=== PATIENT | female | born 1935 | race Caucasian/White ===

== ENCOUNTER 2023-04-04 19:19 | Emergency (ER) | payer OTHER, MEDICARE ==
[2023-04-04 20:16] LABS: Absolute Lymphocytes (CBC) 1.4 K/uL (0.7-4.9); Hematocrit 43.5 % (36.0-45.0); Lymphocytes % 8.6 % (15.3-44.8); MCV 91.6 fL (80-100); MPV 8.8 fL (7.6-11.3); Platelets 188 thou/uL (152-406); RBC Red Blood Cell Count 4.75 M/uL (3.86-4.86)
[2023-04-04 20:21] LABS: Protime INR 1.05
[2023-04-04] MEDS ORDERED: FENTANYL CITR 100 MCG/2 ML ONE ×2 (20:24→23:47)
[2023-04-04] MEDS ORDERED: NA CHLORIDE 0.9% 500 ML ONE (20:24)
[2023-04-04] MEDS ORDERED: ONDANSETRON 4 MG/2 ML VIAL ONE (20:24)
[2023-04-04] MEDS ORDERED: NA CHLORIDE 0.9% 1,000 ML ONE (20:24)
[2023-04-04 20:38] LABS: Albumin 3.9 g/dL (3.4-5.0); Bilirubin Direct 0.1 mg/dL (0-0.2); Bilirubin Indirect, Calculated 0.4 mg/dL (0.2-0.8); Bilirubin Total 0.5 mg/dL (0.2-1.0); Magnesium 1.7 mg/dL (1.6-2.4); Potassium 3.5 mEq/L (3.5-5.1); Protein, Total 7.7 g/dL (6.4-8.2); Troponin High Sensitivity 10.4 pg/mL (<58.9)
--- NOTE | 2023-04-04 21:03 | ER ---
Nurse's Notes [facility] Name: Sandra Naylor Age: 88 yrs Sex: Female : 1935 Arrival Date: 04/04/2023 Time: 19:19 Bed 4 Private MD: Ru Murillo V Diagnosis: Fall on same level, unspecified;Nondisplaced fracture of base of neck of left femur, initial encounter for closed fracture;Chronic kidney disease, unspecified;Essential (primary) hypertension;Elevated white blood cell count;UTI/ Urinary tract infection, site not specified Presentation: 04/04 19:25 Chief complaint: Patient states: Fell directly on left hip while walking and trying to vc1 keep from falling. Coronavirus screen: Client denies travel out of the [place] in the last 14 days. At this time, the client does not indicate any symptoms associated with coronavirus-19. Ebola Screen: Patient negative for fever greater than or equal to 101.5 degrees Fahrenheit, and additional compatible Ebola Virus Disease symptoms Patient denies exposure to infectious person. Patient denies travel to an Ebola-affected area in the 21 days before illness onset. No symptoms or risks identified at this time. Risk Assessment: Do you want to hurt yourself or someone else? Patient reports no desire to harm self or others. Onset of symptoms was April 04, 2023. 19:25 Method Of Arrival: Wheelchair vc1 19:25 Acuity: SUSAN 3 vc1 19:34 Initial Sepsis Screen: Does the patient meet any 2 criteria? No. Patient's initial ha1 sepsis screen is negative. Does the patient have a suspected source of infection? No. Patient's initial sepsis screen is negative. Triage Assessment: 19:30 General: Appears in no apparent distress. uncomfortable, Behavior is calm, cooperative, vc1 appropriate for age. Pain: Complains of pain in left hip Pain does not radiate. Pain currently is 8 out of 10 on a pain scale. at worst was 10 out of 10 on a pain scale. Quality of pain is described as sharp, Pain began suddenly, 1.5 hr ago Is continuous, Alleviated by rest, Aggravated by increased activity, weight bearing, Noted to be grimacing. EENT: No deficits noted. No signs and/or symptoms were reported regarding the EENT system. Neuro: Level of Consciousness is awake, alert, obeys commands, Oriented to person, place, time, situation, Appropriate for age. Cardiovascular: No deficits noted. Respiratory: Airway is patent Respiratory effort is even, unlabored, Respiratory pattern is regular, symmetrical. GI: No deficits noted. No signs and/or symptoms were reported involving the gastrointestinal system. : No deficits noted. No signs and/or symptoms were reported regarding the genitourinary system. Derm: No deficits noted. No signs and/or symptoms reported regarding the dermatologic system. Musculoskeletal: Reports pain in left hip. Historical: - Allergies: 19:27 PENICILLINS; vc1 19:27 Cefzil; vc1 19:27 Ceclor; vc1 19:27 amlodipine; vc1 19:27 Bystolic; vc1 19:27 Lisinopril; vc1 - PMHx: 19:27 Hypertensive disorder; Kidney disease; Hypercholesterolemia; transient global amesia vc1 (periodic condition); - PSHx: 19:27 None; vc1 - Immunization history:: Client reports receiving the 2nd dose of the Covid vaccine, plus booster; Cynthiaa Had a reaction to third vaccine. - Social history:: Smoking status: Patient denies any tobacco usage or history of. - Family history:: not pertinent. Screenin:34 Abuse screen: Denies threats or abuse. Denies injuries from another. Nutritional ha1 screening: No deficits noted. Tuberculosis screening: No symptoms or risk factors identified. 19:34 [facility] ED Fall Risk Assessment (Adult) History of falling in the last 3 months, ha1 including since admission Yes- single mechanical fall (1 pt) Confusion or Disorientation No (0 pts) Intoxicated or Sedated No (0 pts) Impaired Gait Yes (1 pt) Mobility Assist Device Used Yes (1 pt) Altered Elimination No (0 pt) Score/Fall Risk Level 3 or more points = High Risk Oriented to surroundings, Maintained a safe environment, Educated pt \T\ family on fall prevention, incl call for assistance when getting out of bed. Assessment: 19:35 General: Appears uncomfortable, Behavior is cooperative. Pain: Complains of pain in ha1 left hip Pain does not radiate. Pain currently is 10 out of 10 on a pain scale. Quality of pain is described as throbbing. Neuro: Level of Consciousness is awake, alert, obeys commands, Oriented to person, place, time, situation. Cardiovascular: Patient's skin is warm and dry. Respiratory: Airway is patent Respiratory effort is even, unlabored, Respiratory pattern is regular, symmetrical. GI: No signs and/or symptoms were reported involving the gastrointestinal system. Derm: Skin is fragile, Skin is pink, warm \T\ dry. Musculoskeletal: Circulation, motion, and sensation intact. Range of motion: limited in left hip. 20:30 Reassessment: Patient and/or family updated on plan of care and expected duration. Pain ha1 level reassessed. Patient is alert, oriented x 3, equal unlabored respirations, skin warm/dry/pink. 21:30 Reassessment: Patient and/or family updated on plan of care and expected duration. Pain ha1 level reassessed. Patient is alert, oriented x 3, equal unlabored respirations, skin warm/dry/pink. 22:30 Reassessment: Patient and/or family updated on plan of care and expected duration. Pain ha1 level reassessed. Patient is alert, oriented x 3, equal unlabored respirations, skin warm/dry/pink. 23:30 Reassessment: Patient and/or family updated on plan of care and expected duration. Pain ha1 level reassessed. Patient is alert, oriented x 3, equal unlabored respirations, skin warm/dry/pink. awaiting on ambulance. Vital Signs: 19:25 Weight 65.77 kg; Height 5 ft. 1 in. ; Pain 8/10; vc1 19:32 Pulse 102; Resp 16; Temp 99; Pulse Ox 96% ; vc1 19:34 BP 182 / 80; vc1 21:30 BP 161 / 95; Pulse 106; Resp 15 S; Pulse Ox 92% on R/A; ha1 22:30 BP 174 / 102; Pulse 108; Resp 18 S; Pulse Ox 92% on R/A; ha1 23:30 BP 162 / 92; Pulse 103; Resp 20 S; Pulse Ox 95% on 2 lpm NC; ha1 19:25 Body Mass Index 27.40 (65.77 kg, 154.94 cm) vc1 19:25 Pain Scale: Adult vc1 ED Course: 19:21 Patient arrived in ED. mr 19:21 Ru Murillo MD is Private Physician. mr 19:22 Hilario Stephens MD is Attending Physician. edgar 19:27 Triage completed. vc1 19:30 Arm band placed on right wrist. vc1 19:34 Patient has correct armband on for positive identification. Placed in gown. Bed in low ha1 position. Call light in reach. Side rails up X 1. 20:10 Missed attempt(s): 22 gauge in right antecubital area. Bleeding controlled, band aid pf1 applied, catheter tip intact. 20:20 Missed attempt(s): 22 gauge in left forearm. pf1 20:25 Inserted saline lock: 22 gauge in right forearm, using aseptic technique. pf1 21:13 XRAY Chest (1 view) In Process Unspecified. EDMS 21:13 Pelvis XRAY In Process Unspecified. EDMS 21:13 Femur Left XRAY In Process Unspecified. EDMS 21:[address] stephens called [facility]. sp 21:31 2100 [facility] no beds. sp 21:[address] Stephens called [facility] for transfer. sp 22:[address] Markell Clifton approved transfer. sp 22:35 1023 Reyna Phoenix RN admin approval to [facility]. sp 22:43 Mccall cath inserted, using sterile technique, 16 Fr., by tn, balloon inflated, [facility], urine specimen collected. 04/05 00:00 Provided Education on: need for transfer . ha1 00:00 No provider procedures requiring assistance completed. ha1 00:00 Patient transferred, IV remains in place. ha1 Administered Medications: 04/04 20:30 Drug: Ondansetron IVP 4 mg Route: IVP; Site: right hand; 1 21:00 Follow up: Response: No adverse reaction ha1 20:33 Drug: fentaNYL (PF) IVP 25 mcg Route: IVP; Site: right hand; ha1 21:00 Follow up: Response: No adverse reaction; Pain is decreased; RASS: Alert and Calm (0) ha1 22:00 Drug: NS 0.9% IV 500 ml Route: IV; Rate: bolus; Site[facility] 04/05 05:00 Follow up: Response: No adverse reaction; IV Status: Completed infusion; IV Intake: ha1 500ml 04/04 22:00 Drug: NS 0.9% IV 1000 ml Route: IV; Rate: 125 ml/hr; Site: right hand; 1 04/05 00:00 Follow up: Response: No adverse reaction; IV Status: Infusion continued; IV Intake: ha1 450ml 04/04 23:38 Drug: fentaNYL (PF) IVP 25 mcg Route: IVP; Site: right forearm; pf1 04/05 00:00 Follow up: Response: No adverse reaction; Pain is decreased; RASS: Alert and Calm (0) ha1 04/04 23:42 Drug: levofloxacin IVPB 250 mg Volume: 50 ml; Route: IVPB; Infused Over: 60 mins; Site: ha1 right hand; 04/05 00:00 Follow up: Response: No adverse reaction; IV Status: Infusion continued ha1 Medication: 00:00 VIS not applicable for this client. ha1 Intake: 00:00 IV: 450ml; Total: 450ml. ha1 05:00 IV: 500ml; Total: 950ml. ha1 Outcome: 04/04 21:03 ER care complete, transfer ordered by . edgar 04/05 00:00 Transferred by ground EMS to [facility]. ha1 00:00 Condition: stable ha1 00:00 Discharge instructions given to patient, family, Instructed on the need for transfer, Demonstrated understanding of instructions. 00:12 Patient left the ED. ha1 Signatures: Dispatcher [employer] Hilario Eastman MD MD cha Pinkerton, Shawna sp Rivera, Mary mr Callie Galeano RN RN 1 Jolie Hoyos RN RN 1 Bianca Morris RN RN pf1 Corrections: (The following items were deleted from the chart) 04/04 19:30 19:27 Allergies: No Known Allergies; 1 1 21:17 21:[address] stephens called [facility] jovani hhan
--- NOTE | 2023-04-04 21:03 | EDPHYS ---
Physician Documentation [facility] Name: Sandra Naylor Age: 88 yrs Sex: Female : 1935 Arrival Date: 04/04/2023 Time: 19:19 Bed 4 Private MD: Ru Murillo V ED Physician Hilario Stephens HPI: 04/04 20:56 This 88 yrs old Female presents to ER via Wheelchair with complaints of Fall edgar Injury, Hip Pain. 20:56 Details of fall: The patient fell from an upright position, while walking. Onset: The edgar symptoms/episode began/occurred just prior to arrival. Associated injuries: The patient sustained left upper thigh, decreased range of motion. Historical: - Allergies: 19:27 PENICILLINS; vc1 19:27 Cefzil; vc1 19:27 Ceclor; vc1 19:27 amlodipine; vc1 19:27 Bystolic; vc1 19:27 Lisinopril; vc1 - PMHx: 19:27 Hypertensive disorder; Kidney disease; Hypercholesterolemia; transient global amesia vc1 (periodic condition); - PSHx: 19:27 None; vc1 - Immunization history:: Client reports receiving the 2nd dose of the Covid vaccine, plus booster; Moderna Had a reaction to third vaccine. - Social history:: Smoking status: Patient denies any tobacco usage or history of. - Family history:: not pertinent. ROS: 20:56 Constitutional: Negative for fever, chills, and weight loss, Eyes: Negative for injury, edgar pain, redness, and discharge, ENT: Negative for injury, pain, and discharge, Neck: Negative for injury, pain, and swelling, Cardiovascular: Negative for chest pain, palpitations, and edema, Respiratory: Negative for shortness of breath, cough, wheezing, and pleuritic chest pain, Abdomen/GI: Negative for abdominal pain, nausea, vomiting, diarrhea, and constipation, Back: Negative for injury and pain, : Negative for injury, bleeding, discharge, and swelling, Skin: Negative for injury, rash, and discoloration, Neuro: Negative for headache, weakness, numbness, tingling, and seizure, Psych: Negative for depression, anxiety, suicide ideation, homicidal ideation, and hallucinations, Allergy/Immunology: Negative for hives, rash, and allergies, Endocrine: Negative for neck swelling, polydipsia, polyuria, polyphagia, and marked weight changes, Hematologic/Lymphatic: Negative for swollen nodes, abnormal bleeding, and unusual bruising. 20:56 MS/extremity: Positive for decreased range of motion, pain, tenderness, of the left hip, left gluteal fold, left inner thigh and left upper thigh. Exam: 20:56 Constitutional: This is a well developed, well nourished patient who is awake, alert, edgar and in no acute distress. Head/Face: Normocephalic, atraumatic. Eyes: Pupils equal round and reactive to light, extra-ocular motions intact. Lids and lashes normal. Conjunctiva and sclera are non-icteric and not injected. Cornea within normal limits. Periorbital areas with no swelling, redness, or edema. ENT: Nares patent. No nasal discharge, no septal abnormalities noted. Tympanic membranes are normal and external auditory canals are clear. Oropharynx with no redness, swelling, or masses, exudates, or evidence of obstruction, uvula midline. Mucous membranes moist. Neck: Trachea midline, no thyromegaly or masses palpated, and no cervical lymphadenopathy. Supple, full range of motion without nuchal rigidity, or vertebral point tenderness. No Meningismus. Chest/axilla: Normal chest wall appearance and motion. Nontender with no deformity. No lesions are appreciated. Cardiovascular: Regular rate and rhythm with a normal S1 and S2. No gallops, murmurs, or rubs. Normal PMI, no JVD. No pulse deficits. Respiratory: Lungs have equal breath sounds bilaterally, clear to auscultation and percussion. No rales, rhonchi or wheezes noted. No increased work of breathing, no retractions or nasal flaring. Abdomen/GI: Soft, non-tender, with normal bowel sounds. No distension or tympany. No guarding or rebound. No evidence of tenderness throughout. Back: No spinal tenderness. No costovertebral tenderness. Full range of motion. Skin: Warm, dry with normal turgor. Normal color with no rashes, no lesions, and no evidence of cellulitis. Neuro: Awake and alert, GCS 15, oriented to person, place, time, and situation. Cranial nerves II-XII grossly intact. Motor strength 5/5 in all extremities. Sensory grossly intact. Cerebellar exam normal. Normal gait. Psych: Awake, alert, with orientation to person, place and time. Behavior, mood, and affect are within normal limits. 20:56 Musculoskeletal/extremity: Extremities: grossly normal except: noted in the left hip, left inner thigh and left upper thigh: decreased ROM, pain. 23:27 ECG was reviewed by the Attending Physician. edgar Vital Signs: 19:25 Weight 65.77 kg; Height 5 ft. 1 in. ; Pain 8/10; vc1 19:32 Pulse 102; Resp 16; Temp 99; Pulse Ox 96% ; vc1 19:34 BP 182 / 80; vc1 21:30 BP 161 / 95; Pulse 106; Resp 15 S; Pulse Ox 92% on R/A; ha1 22:30 BP 174 / 102; Pulse 108; Resp 18 S; Pulse Ox 92% on R/A; ha1 23:30 BP 162 / 92; Pulse 103; Resp 20 S; Pulse Ox 95% on 2 lpm NC; ha1 19:25 Body Mass Index 27.40 (65.77 kg, 154.94 cm) vc1 19:25 Pain Scale: Adult vc1 MDM: 19:22 Patient medically screened. edgar 20:59 Differential diagnosis: contusion, fracture, multiple trauma, sprain, strain. Data [facility] reviewed: vital signs, nurses notes, lab test result(s), EKG, radiologic studies, plain films. Consideration of Admission/Observation Escalation of care including admission/observation considered. I considered the following discharge prescriptions or medication management in the emergency department Medications were administered in the Emergency Department. See MAR. Test considered but Not performed: CT: no ct hip needed. Care significantly affected by the following chronic conditions: Hypertension, Chronic Kidney Disease, high cholesterol. Counseling: I had a detailed discussion with the patient and/or guardian regarding the historical points, exam findings, and any diagnostic results supporting the discharge/admit diagnosis, lab results, radiology results, the need to transfer to another facility, for higher level of care, [facility] does not immediately have the required specialist, family wants [facility]. 04/04 19:48 Order name: Basic Metabolic Panel; Complete Time: 21:42 [facility] 04/04 19:48 Order name: CBC with Diff; Complete Time: 21:42 [facility] 04/04 19:48 Order name: LFT's; Complete Time: 21:42 [facility] 04/04 19:48 Order name: Magnesium; Complete Time: 21:42 [facility] 04/04 19:48 Order name: NT PRO-BNP; Complete Time: 21:42 [facility] 04/04 19:48 Order name: PT-INR; Complete Time: 21:42 [facility] 04/04 19:48 Order name: Troponin HS; Complete Time: 21:42 [facility] 04/04 19:48 Order name: SARS RAPID 04/04 19:48 Order name: Urinalysis w/ reflexes; Complete Time: 23:25 [facility] 04/04 19:48 Order name: XRAY Chest (1 view); Complete Time: 21:42 [facility] 04/04 19:48 Order name: Pelvis XRAY; Complete Time: 21:42 [facility] 04/04 19:48 Order name: Femur Left XRAY; Complete Time: 21:42 [facility] 04/04 19:48 Order name: EKG; Complete Time: 19:49 [facility] 04/04 19:48 Order name: Cardiac monitoring; Complete Time: 23:25 [facility] 04/04 19:48 Order name: EKG - Nurse/Tech; Complete Time: 23:25 [facility] 04/04 19:48 Order name: IV Saline Lock; Complete Time: 20:33 [facility] 04/04 19:48 Order name: Labs collected and sent; Complete Time: 20:33 [facility] 04/04 19:48 Order name: O2 Per Protocol; Complete Time: 20:33 [facility] 04/04 19:48 Order name: O2 Sat Monitoring; Complete Time: 20:33 [facility] 04/04 22:02 Order name: Misc. Order: please get cath ua; Complete Time: 22:40 [facility] EC:27 Rate is 110 beats/min. Rhythm is regular. QRS [place] is Normal. [place] interval is normal. [facility] QRS interval is normal. QT interval is normal. No Q waves. T waves are Normal. No ST changes noted. Clinical impression: Sinus tachycardia and No evidence of ischemia. Interpreted by me. Reviewed by me. Administered Medications: 20:30 Drug: Ondansetron IVP 4 mg Route: IVP; Site: right hand; ha1 21:00 Follow up: Response: No adverse reaction ha1 20:33 Drug: fentaNYL (PF) IVP 25 mcg Route: IVP; Site: right hand; ha1 21:00 Follow up: Response: No adverse reaction; Pain is decreased; RASS: Alert and Calm (0) [facility] 22:00 Drug: NS 0.9% IV 500 ml Route: IV; Rate: bolus; Site: right hand; [facility] 04/05 05:00 Follow up: Response: No adverse reaction; IV Status: Completed infusion; IV Intake: ha1 500ml 04/04 22:00 Drug: NS 0.9% IV 1000 ml Route: IV; Rate: 125 ml/hr; Site: right hand; 1 04/05 00:00 Follow up: Response: No adverse reaction; IV Status: Infusion continued; IV Intake: ha1 450ml 04/04 23:38 Drug: fentaNYL (PF) IVP 25 mcg Route: IVP; Site: right forearm; pf1 04/05 00:00 Follow up: Response: No adverse reaction; Pain is decreased; RASS: Alert and Calm (0) [facility] 04/04 23:42 Drug: levofloxacin IVPB 250 mg Volume: 50 ml; Route: IVPB; Infused Over: 60 mins; Site: ha right hand; 04/05 00:00 Follow up: Response: No adverse reaction; IV Status: Infusion continued [facility] Disposition Summary: 04/04/23 21:03 Transfer Ordered Reason: Higher level of care edgar Condition: Stable edgar Problem: new edgar Symptoms: have improved edgar Transfer Location: [facility](04/04/23 21:24) edgar Accepting Physician: to [facility](04/05/23 00:12) ha1 Diagnosis - Fall on same level, unspecified edgar - Nondisplaced fracture of base of neck of left femur, initial encounter for closed edgar fracture - Chronic kidney disease, unspecified edgar - Essential (primary) hypertension edgar - Elevated white blood cell count edgar - UTI/ Urinary tract infection, site not specified edgar Forms: - Medication Reconciliation Form edgar - SBAR form edgar Signatures: Dispatcher [employer] EDMS Hilario Stephens MD MD cha Calcote, Vanessa RN RN vc1 Jolie Hoyos RN RN ha1 Bianca Morris RN RN pf1 Corrections: (The following items were deleted from the chart) 04/04 19:30 19:27 Allergies: No Known Allergies; 1 vc1 21:11 19:49 Hip Left 2 View+RAD.RAD.BRZ ordered. EDMS EDMS 21:24 21: to [facility] edgar edgar : [facility] edgar edgar : to [facility] : to [facility] 04/05 00:12 04/04 23: to [facility] ha1
--- NOTE | 2023-04-04 21:32 | RAD REPORT ---
EXAM DESCRIPTION: RAD - Pelvis - 04/04/2023 9:11 pm CLINICAL HISTORY: PAIN COMPARISON: Femur Left dated 04/04/2023 FINDINGS/IMPRESSION: Left subcapital femoral neck fracture. No malalignment. Degenerative changes in the lower spine. Moderate stool.
--- NOTE | 2023-04-04 21:33 | RAD REPORT ---
EXAM DESCRIPTION: RAD - Femur Left - 04/04/2023 9:11 pm CLINICAL HISTORY: PAIN COMPARISON: No comparisons FINDINGS/IMPRESSION: Left subcapital femoral neck fracture suspected . This is likely minimally disp laced or nondisplaced no dislocation. . No other fractures seen.
--- NOTE | 2023-04-04 21:34 | RAD REPORT ---
EXAM DESCRIPTION: RAD - Chest Single View - 04/04/2023 9:11 pm CLINICAL HISTORY: PAIN COMPARISON: Chest Pa And Lat (2 Views) dated 08/05/2022 FINDINGS: Lines: None. Lungs: No evidence of edema or pneumonia. Pleural: No significant pleural effusions or pneumothorax. Cardiac: The heart size is within normal limits. Mediastinum: Within normal limits. Bones: No acute fractures. Other: None IMPRESSION: No acute cardiopulmonary disease.
[2023-04-04 23:04] LABS: Specific Gravity 1.016 (1.005-1.030); Urine Bacteria <20 /HPF (<20); Urine Bilirubin NEGATIVE (Negative); Urine Blood Negative (Negative); Urine Clarity Clear (Clear); Urine Color Light-Yellow (Yellow); Urine Glucose NEGATIVE (Negative); Urine Mucus Slight /HPF (None Seen); Urine Protein NEGATIVE (Negative); Urine RBC <5 /HPF (None Seen); Urine Urobilinogen Normal (Normal)
[2023-04-04 23:39] LABS: SARS-CoV-2 Antigen Rapid Res Negative (Negative)
[2023-04-04] MEDS ORDERED: Levofloxacin500mg IV 500 MG/100 ML BAG IV ONE (23:45)
[2023-04-05 00:57] VITALS: TEMP 99
[2023-04-05 01:03] VITALS: O2SAT 92
[2023-04-05 01:05] VITALS: BP 174/102
--- NOTE | 2023-04-06 16:50 | EKG ---
Test Date: 2023-04-04 Test Time: 23:22:00 Corrections Officer: MACKENZIE MEASUREMENT RESULTS: Intervals: Rate: 110 NM: 148 QRSD: 82 QT: 314 QTc: 424 [place]: P: 59 NM: 148 QRS: 60 T: 68 INTERPRETIVE STATEMENTS: Sinus tachycardia Nonspecific ST and T wave abnormality Abnormal ECG No previous ECG available for comparison Electronically Signed On 04-06-23 16:44:56 CDT by Reno Zapata
== END 2023-04-05 00:12 | disposition short-term general hospital (02) ==
LOC: ER 19:19
DX: S72.045A Nondisplaced fracture of base of neck of left femur, initial encounter for closed fracture (principal); W18.30XA Fall on same level, unspecified, initial encounter; N39.0 Urinary tract infection, site not specified; D72.829 Elevated white blood cell count, unspecified; I12.9 Hypertensive chronic kidney disease with stage 1 through stage 4 chronic kidney disease, or unspecified chronic kidney disease; N18.9 Chronic kidney disease, unspecified; Z88.0 Allergy status to penicillin; Z88.1 Allergy status to other antibiotic agents; Z88.8 Allergy status to other drugs, medicaments and biological substances; Z20.822 Contact with and (suspected) exposure to COVID-19
CPT/HCPCS: 93005; 85025; 81001; 80048; 36415; 83735; 85610; 80076; 84484; 83880; 71045; 72170; 73552; 51702; 99285; 87811; J3010 ×2; J2405; J7040; J7030

== ENCOUNTER 2023-04-07 15:20 | Inpatient (IN) | payer OTHER, MEDICARE ==
--- OUTSIDE RECORDS SUMMARY | 2023-04-07 18:14 | XMS REPORT | Continuity of Care Document ---
:1935 Author Organization [facility] t Address [address] [place] [address] [place] [id number] Care Team Providers Name Role Phone RENE ALSTON Primary Care Physician UnavailNEIDA Hickman Attending Clinician Unavailable SIENNA BETANCOURT Attending Clinician Unavailable Luc Montgomery MD Attending Clinician Michael Smith MD Attending Clinician Sienna Betancourt MD Attending Clinician [phone] Neida Wood MD Attending Clinician Unavailable Sidney [place], Zhang Monk Attending Clinician LUC MONTGOMERY Attending Clinician Unavailable LUC MONTGOMERY Admitting Clinician Unavailable NEIDA WOOD Admitting Clinician Unavailable Payers Payer Name Policy Type Policy Number Effective Date Expiration Date S ource MEDICARE A B [id number] 2000 00:00:00 [facility] [id number] 2022 HEALTHCARE 00:00:00 Problems Condition Condition Condition Status Onset Resolution Last Treating Co mments Source Name Details Category Date Date Treatment Clinician Date Femoral Femoral Disease [facility] fracture fracture 00[facility] l 00 Center Femur Femur Disease Recurre [facility] fracture, fracture, nce 9[facility] left left 00:00: Medical 00 Center Allergies, Adverse Reactions, Alerts Allergy Allergy Status Severity Reaction(s) Onset Inactive Treating Comm ents Source Name Type Date Date Clinician NEBIVOLO Allergy Active High [facility] PENICILL Allergy Active High Other [facility] [place] [facility] AMLODIPI Allergy Active [facility] 00 Center CEFACLOR Allergy Active [facility] CEFPROZI Allergy Active [facility] LISINOPR Allergy Active [facility] [place] [facility]: [facility] 00 Center Cefprozi Propensi Active [facility] ty [facility] adverse 00:00: Medical reaction 00 Center s Lisinopr Propensi Active [facility] ty to 04-05 [facility] adverse 00:00: Medical reaction 00 Center s Penicill Propensi Active Other (See jaundice [facility] ty to Comments) 04-[facility] adverse 00:00: Medical reaction 00 Center s Amlodipi Propensi Active [facility] ty to 04-05 [facility] adverse 00:00: Medical reaction 00 Center s Nebivolo Propensi Active Other (See Didn't [facility] ty to Comments) 04-05 feel [facility] adverse 00:00: right Medical reaction 00 Center s Cefaclor Propensi Active [facility] ty to 04-05 [facility] adverse 00:00: Medical reaction 00 Center s NO KNOWN Allergy Active [facility] Family History Family Member Diagnosis Comments Start Date Stop Date Source Natural brother Parkinsonism [facility] Natural father Hypertension [facility] Natural mother Asthma [facility] Natural mother Hypertension [facility] Social History Social Habit Start Date Stop Date Quantity Comments Source History SDOH [facility] Transport Non-Med Medical Center Alcohol intake 2023-04-06 2023-04-[address] [facility] 00:00:00 00:00:00 non-drinker Medical Darine r (finding) Exposure to 2023-03-26 2023-04-[address] [facility] SARS-CoV-2 (event) 00:00:00 01:48:00 Medica l Center Tobacco use and 2023-04-05 2023-04-[address] [facility] exposure 00:00:00 00:00:00 non-user Medical Center History [facility] 2023-04-05 2023-04-[address] [facility] Transport Med 00:00:00 00:00:[address] History [facility] 2023-04-05 2023-04-[address] [facility] Housing Unable to 00:00:00 00:00:00 Medical Center Pay History [facility] 2023-04-05 2023-04-[address] [facility] Housing Places 00:00:00 00:00:00 Medical Ce nter Lived History [facility] 2023-04-05 2023-04-[address] [facility] Housing Homeless 00:00:00 00:00:00 Medical Center Last Year Sex Assigned At [birth year] [facility] Madonna kes 00:00:00 00:00:00 Medical Center Smoking Status Start Date Stop Date Source Never smoked tobacco [facility] Medications Ordered Filled Start Stop Current Ordering Indication Dosage Frequency Signature Comments Components Source Medication Medication Date Date Medication? Clinician (SIG) Name Name aspirin 81 Yes 81mg QD Take 1 [facility] 04-07 tablet (81 [facility] tablet 17:09: mg total) Medica l 04 by mouth Center daily. pravastatin 2023- Yes 40mg QD Take [address] (PRAVACHOL) 04-07 tablet (40 L ukes 40 MG 00:00: 23:59 mg total) Medica l tablet 00 :00 by mouth Center nightly. traMADoL 2022- Yes 50mg Take [address] [facility] (ULTRAM) 50 04-07 tablet (50 L ukes mg tablet 00:00: 23:59 mg total) Me dical 00 :00 by mouth Center every 6 (six) hours as needed for up to 8 days. Max Daily Amount: 200 mg Vital Signs Vital Name Observation Time Observation Value Comments Source HEIGHT 2023-04-05 02:31:00 154.9 cm WEIGHT 2023-04-05 02:31:00 65.772 kg HEIGHT 2023-04-05 02:31:00 154.9 cm WEIGHT 2023-04-05 02:31:00 65.772 kg HEIGHT 2023-04-05 02:31:00 154.9 cm WEIGHT 2023-04-05 02:31:00 65.772 kg Heart rate 2023-04-07 15:39:32 92 /min [facility] Oxygen saturation in 2023-04-07 15:39:32 96 /min [facility] Arterial blood by Medical Ce nter Pulse oximetry Systolic blood 2023-04-07 15:38:30 121 mm[Hg] [facility] Diastolic blood 2023-04-07 15:38:30 102 mm[Hg] [facility] Body temperature 2023-04-07 12:09:00 36.06 Elvira [facility] Respiratory rate 2023-04-07 12:09:00 18 /min [facility] Body height 2023-04-05 02:31:[address] [facility] Body weight 2023-04-05 02:31:[address] [facility] BMI 2023-04-05 02:31:00 27.40 kg/m2 [facility] Procedures Procedure Date / Time Performed Performing Clinician Stacey aviles CBC W/PLT COUNT & AUTO 2023-04-06 05:14:00 Neida Wood [facility] BASIC METABOLIC PANEL 2023-04-06 05:14:00 Neida Wood [facility] CBC W/PLT COUNT & AUTO 2023-04-06 05:14:00 Neida Wood [facility] FL FLUORO NON-SPECIFIC 2023-04-05 17:55:00 Neida Wood [facility] UP TO 1 HOUR Medical [place] ORIF, FRACTURE, FEMUR 2023-04-05 17:06:00 Neida Wood [facility] ECG 12-LEAD 2023-04-05 12:34:04 Zhang Little [facility] ECG 12-LEAD 2023-04-05 12:34:04 Unknown, Hl7 Doctor [facility] ABORH, MANUAL 2023-04-05 05:24:00 Yasemin Shah [facility] BASIC METABOLIC PANEL 2023-04-05 04:16:00 John [facility] HEPATIC FUNCTION PANEL 2023-04-05 04:16:00 John [facility] PROTHROMBIN TIME/INR 2023-04-05 04:16:00 [facility] LIPID PANEL 2023-04-05 04:16:00 [facility] MAGNESIUM 2023-04-05 04:16:00 [facility] PHOSPHORUS 2023-04-05 04:16:00 [facility] CBC W/PLT COUNT & AUTO 2023-04-05 04:16:00 John [facility] PTH, INTACT 2023-04-05 04:16:00 John [facility] VITAMIN D, 25-HYDROXY 2023-04-05 04:16:00 Lopez [facility] TYPE AND SCREEN, 2023-04-05 04:16:00 John [facility] CBC W/PLT COUNT & AUTO 2023-04-05 04:16:00 Lopez [facility] Plan of Care Planned Activity Planned Date Details Comments Source Future Scheduled 2024-04-[address] [facility] Test 00:00:00 Counseling and Medical Cente r Screening (12+) [code = Tobacco Cessation Counseling and Screening (12+)] Future Scheduled 2023-04-02 Influenza Vaccine (#1) [facility] 00:00:00 [code = Influenza Medical Ce nter Vaccine (#1)] Future Scheduled 2022-08-[address] [facility] Test 00:00:00 (12+) [code = Medical Center DEPRESSION SCREENING (12+)] Future Scheduled 2022-08-02 FALLS RISK SCREENING [facility] Test 00:00:00 [code = FALLS RISK Medical C enter SCREENING] Future Scheduled 2002-01-[address] [facility] Test 00:00:00 WELLNESS (YEAR 2 or Medical Center FIRST YEAR if no IPPE) [code = MEDICARE ANNUAL WELLNESS (YEAR 2 or FIRST YEAR if no IPPE)] Future Scheduled 2001-01-17 PNEUMOCOCCAL 65+ YRS [facility] Test 00:00:00 (1 - PCV) [code = Medical Ce nter PNEUMOCOCCAL 65+ YRS (1 - PCV)] Future Scheduled 1986-01-17 SHINGLES VACCINES ([address] [facility] Test 00:00:00 of 2) [code = SHINGLES Medic al Center VACCINES (1 of 2)] Future Scheduled 1955-01-17 DTAP/TDAP/TD VACCINES [facility] Test 00:00:00 (1 - Tdap) [code = Medical C enter DTAP/TDAP/TD VACCINES (1 - Tdap)] Future Scheduled 1935 COVID-19 VACCINE (#1) [facility] Test 00:00:00 [code = COVID-[address] VACCINE (#1)] Medication 2023-04-08 losartan (COZAAR) [address] [facility] 00:00:00 MG tablet [code = Medical Ce nter 846384] Medication 2023-04-08 enoxaparin (LOVENOX) [facility] 00:00:00 30 mg/0.3 mL Syrg Medical Ce nter [code = 719862] Encounters Start End Encounter Admission Attending Care Care Encounter Source Date/Time Date/Time Type Type Clinicians Facility Department ID 2023-04-05 Inpatient ER [facility] [id number] [facility] 18:02:12 [facility] 2023-04-04 Inpatient [facility] Surgery [id number] [facility] 22:34:50 [facility] 2023-04-05 2023-04-07 Inpatient ER [facility] General Med [id number] [facility] 01:03:00 17:09:00 [place] 2023-04-05 2023-04-07 [facility] Luc Montgomery [facility] [id number] 01:03:00 17:09:00 Encounter Michael Smith [facility] 2023-04-05 2023-04-05 Surgery Israel [facility] [id number] 16:30:00 18:57:00 Neida Yuan [facility] 2023-04-05 2023-04-05 Anesthesia Sidney, [facility] [id number] 17:06:00 18:09:00 Event Zhang [facility] 2023-04-05 2023-04-05 Orders [facility] [id number] 00:00:00 00:00:00 Only [facility] 2023-04-05 2023-04-05 Travel [facility] [id number] [facility] 00:[facility]00 00:00:00 [facility] Results Test Description Test Time Test Comments Results Result Comments Source BASIC METABOLIC PANEL 2023-04-06 10:09:11 Test Item Value Reference Range Interpretation Comme nts SODIUM (BEAKER) (test 140 meq/L 136-145 code = 381) POTASSIUM (BEAKER) 4.4 meq/L 3.5-5.1 (test code = 379) CHLORIDE (BEAKER) (test 107 meq/L 98-107 code = 382) CO2 (BEAKER) (test code 22 meq/L 22-29 = 355) BLOOD UREA NITROGEN 22 mg/dL 7-21 H (BEAKER) (test code = 354) CREATININE (BEAKER) 1.24 mg/dL 0.57-1.25 (test code = 358) GLUCOSE RANDOM (BEAKER) 120 mg/dL 70-105 H (test code = 652) CALCIUM (BEAKER) (test 8.4 mg/dL 8.4-10.2 code = 697) EGFR (BEAKER) (test 42 mL/min/1.73 sq In terpretation of eGFR values code = 1092) m Stage Descripti on Result G1 Normal or high >=90 G2 Mildly decreased 60-89 G3a Mildly to moderately 45-5 9 G3b Moderately to severely 30- 44 G4 Severly decreased 15-29 G5 Kidney failure <15Repo rted eGFR is based on the CK D-EPI 2020 equation that d oes not use a race coefficien tEstimated GFR is not as accurate as Creatinine Clearance in pr edicting glomerular filt ration rate. Estimated GFR i s not applicable for dialysis pa taty CBC W/PLT COUNT & AUTO [id number] 06:15:10 Test Item Value Reference Range Interpretation Comments WHITE BLOOD CELL COUNT (BEAKER) 9.6 K/ L 3.5-10.5 (test code = 775) RED BLOOD CELL COUNT (BEAKER) 4.17 M/ L 3.93-5.22 (test code = 761) HEMOGLOBIN (BEAKER) (test code = 12.2 GM/DL 11.2-15.7 410) HEMATOCRIT (BEAKER) (test code = 38.2 % 34.1-44.9 411) MEAN CORPUSCULAR VOLUME (BEAKER) 92 fL 79-95 (test code = 753) MEAN CORPUSCULAR HEMOGLOBIN 29.3 pg 25.6-32.2 (BEAKER) (test code = 751) MEAN CORPUSCULAR HEMOGLOBIN CONC 31.9 GM/DL 32.2-35.5 L (BEAKER) (test code = 752) RED CELL DISTRIBUTION WIDTH 13.2 % 11.7-14.4 (BEAKER) (test code = 412) PLATELET COUNT (BEAKER) (test 175 K/CU MM 150-450 code = 756) MEAN PLATELET VOLUME (BEAKER) 10.2 fL 9.4-12.3 (test code = 754) NUCLEATED RED BLOOD CELLS 0 /100 WBC 0-0 (BEAKER) (test code = 413) NEUTROPHILS RELATIVE PERCENT 86 % (BEAKER) (test code = 429) LYMPHOCYTES RELATIVE PERCENT 6 % (BEAKER) (test code = 430) MONOCYTES RELATIVE PERCENT 8 % (BEAKER) (test code = 431) EOSINOPHILS RELATIVE PERCENT 0 % (BEAKER) (test code = 432) BASOPHILS RELATIVE PERCENT 0 % (BEAKER) (test code = 437) NEUTROPHILS ABSOLUTE COUNT 8.23 K/ L 1.56-6.13 H (BEAKER) (test code = 670) LYMPHOCYTES ABSOLUTE COUNT 0.53 K/ L 1.18-3.74 L (BEAKER) (test code = 414) MONOCYTES ABSOLUTE COUNT (BEAKER) 0.73 K/ L 0.24-0.36 H (test code = 415) EOSINOPHILS ABSOLUTE COUNT 0.03 K/ L 0.04-0.36 L (BEAKER) (test code = 416) BASOPHILS ABSOLUTE COUNT (BEAKER) 0.02 K/ L 0.01-0.08 (test code = 417) IMMATURE GRANULOCYTES-RELATIVE 0.60 % 0.00-1.00 PERCENT (BEAKER) (test code = 2801) FL FLUORO NON-SPECIFIC UP TO 1 [id number] 18:06:00 [facility] : 1935 Sex: FThis is anon- reportable study with no Radiologist dictation. Please refer to your PACS to review images, or Doc Flowsheets for documentation on studies without images. HEPATIC FUNCTION [id number] 05:56:05 Test Item Value Reference Range Interpretation Comments TOTAL PROTEIN (BEAKER) (test code = 6.8 gm/dL 6.0-8.3 770) ALBUMIN (BEAKER) (test code = 1145) 3.7 g/dL 3.5-5.0 BILIRUBIN TOTAL (BEAKER) (test code 0.6 mg/dL 0.2-1.2 = 377) BILIRUBIN DIRECT (BEAKER) (test 0.3 mg/dL 0.1-0.5 code = 706) ALKALINE PHOSPHATASE (BEAKER) (test 58 U/L 40-150 code = 346) AST (SGOT) (BEAKER) (test code = 26 U/L 5-34 353) ALT (SGPT) (BEAKER) (test code = 19 U/L 6-55 347) Entry Level ID - ADMINBASIC METABOLIC [id number] 05:56:04 Test Item Value Reference Range Interpretation Comments SODIUM (BEAKER) 139 meq/L 136-145 (test code = 381) POTASSIUM 3.7 meq/L 3.5-5.1 (BEAKER) (test code = 379) CHLORIDE (BEAKER) 105 meq/L 98-107 (test code = 382) CO2 (BEAKER) 23 meq/L 22-29 (test code = 355) BLOOD UREA 22 mg/dL 7-21 H NITROGEN (BEAKER) (test code = 354) CREATININE 1.18 mg/dL 0.57-1.25 (BEAKER) (test code = 358) GLUCOSE RANDOM 113 mg/dL 70-105 H (BEAKER) (test code = 652) CALCIUM (BEAKER) 9.0 mg/dL 8.4-10.2 (test code = 697) EGFR (BEAKER) 45 Interpretatio n of eGFR (test code = mL/min/1.73 values Stage De scription 1092) sq m Result G1 Belen l or high >=90 G2 Mildly decreased 60-89 G3a Mildl y to moderately 45-5 9 G3b Moderately to s everely 30-44 G4 Severl y decreased 15-29 G5 Kidney failure <15Reported eGF R is based on the CKD-EPI 2020 equation that d oes not use a race coefficientEsti mated GFR is not as accur ate as Creatinine Vicki milo in predicting glom erular filtration rate . Estimated GFR is not appl icable for dialysis patien ts Entry Level ID - [id number] 05:56:04 Test Item Value Reference Range Interpretation Comments MAGNESIUM (BEAKER) (test code = 1.4 mg/dL 1.6-2.6 L 627) Entry Level ID - [id number] 05:56:04 Test Item Value Reference Range Interpretation Comments PHOSPHORUS (BEAKER) (test code = 4.4 mg/dL 2.3-4.7 604) Entry Level ID - ADMINLIPID [id number] 05:56:04 Test Item Value Reference Range Interpretation Comments TRIGLYCERIDES (BEAKER) (test code = 43 mg/dL 540) CHOLESTEROL (BEAKER) (test code = 168 mg/dL 631) HDL CHOLESTEROL (BEAKER) (test code 68 mg/dL = 976) LDL CHOLESTEROL CALCULATED (BEAKER) 91 mg/dL (test code = 633) Triglyceride Reference Range: Low Risk <150 Borderline 150-199 High Risk 200-499 Very High Risk >=500Cholesterol Reference Range: Low Risk <200 Borderline 200-239 High Risk >240HDL Cholesterol Reference Range: Low Risk >=60 High Risk <40LDL Cholesterol Reference Range: Optimal <100 Near Optimal 100-129 Borderline 130-159 High 160-189 Very High >=190 Entry Level ID - ADMINVITAMIN D, [id number] 05:54:20 Test Item Value Reference Range Interpretation Comments VITAMIN D 25-OH (BEAKER) (test 42.6 ng/mL 6.6-49.9 code = 2764) Effective 05/12/2017: Reference Range ChangeNew: 6.6-49.9 ng/mL Previous: 13.0- 47.8 ng/mLRecommendedVitamin D Target Range: 30.0-40.0 ng/mLOperator ID - ADMIN CBC W/PLT COUNT & AUTO [id number] 05:44:23 Test Item Value Reference Range Interpretation Comments WHITE BLOOD CELL COUNT (BEAKER) 13.1 K/ L 3.5-10.5 H (test code = 775) RED BLOOD CELL COUNT (BEAKER) 4.37 M/ L 3.93-5.22 (test code = 761) HEMOGLOBIN (BEAKER) (test code = 12.9 GM/DL 11.2-15.7 410) HEMATOCRIT (BEAKER) (test code = 40.1 % 34.1-44.9 411) MEAN CORPUSCULAR VOLUME (BEAKER) 92 fL 79-95 (test code = 753) MEAN CORPUSCULAR HEMOGLOBIN 29.5 pg 25.6-32.2 (BEAKER) (test code = 751) MEAN CORPUSCULAR HEMOGLOBIN CONC 32.2 GM/DL 32.2-35.5 (BEAKER) (test code = 752) RED CELL DISTRIBUTION WIDTH 13.0 % 11.7-14.4 (BEAKER) (test code = 412) PLATELET COUNT (BEAKER) (test 194 K/CU MM 150-450 code = 756) MEAN PLATELET VOLUME (BEAKER) 10.5 fL 9.4-12.3 (test code = 754) NUCLEATED RED BLOOD CELLS 0 /100 WBC 0-0 (BEAKER) (test code = 413) NEUTROPHILS RELATIVE PERCENT 86 % (BEAKER) (test code = 429) LYMPHOCYTES RELATIVE PERCENT 7 % (BEAKER) (test code = 430) MONOCYTES RELATIVE PERCENT 6 % (BEAKER) (test code = 431) EOSINOPHILS RELATIVE PERCENT 1 % (BEAKER) (test code = 432) BASOPHILS RELATIVE PERCENT 0 % (BEAKER) (test code = 437) NEUTROPHILS ABSOLUTE COUNT 11.27 K/ L 1.56-6.13 H (BEAKER) (test code = 670) LYMPHOCYTES ABSOLUTE COUNT 0.86 K/ L 1.18-3.74 L (BEAKER) (test code = 414) MONOCYTES ABSOLUTE COUNT (BEAKER) 0.74 K/ L 0.24-0.36 H (test code = 415) EOSINOPHILS ABSOLUTE COUNT 0.09 K/ L 0.04-0.36 (BEAKER) (test code = 416) BASOPHILS ABSOLUTE COUNT (BEAKER) 0.05 K/ L 0.01-0.08 (test code = 417) IMMATURE GRANULOCYTES-RELATIVE 0.50 % 0.00-1.00 PERCENT (BEAKER) (test code = 2801) PTH, [id number] 05:40:54 Test Item Value Reference Range Interpretation Comments PARATHYROID HORMONE INTACT 78.7 pg/mL 8.5-72.5 H (BEAKER) (test code = 577) Entry Level ID - MARCOPROTHROMBIN [id number] 05:32:14 Test Item Value Reference Range Interpretation Comments PROTIME (BEAKER) 14.7 seconds 11.9-14.2 H (test code = 759) INR (BEAKER) (test 1.17 See_Comment [Automat ed message] code = 370) The system [employer] generated this result transmitted ref erence range: <=5.90. The reference range was not used to int erpret this result as normal/abnormal . RECOMMENDED COUMADIN/WARFARIN INR THERAPY RANGESSTANDARD DOSE: 2.0 - 3.0 Includes: PROPHYLAXIS for venous thrombosis, systemic embolization; TREATMENT for venous thrombosis and/or pulmonary embolus.HIGH RISK: Target INR is 2.5-3.5 for patients with mechanical heart valves.
[2023-04-07 19:28] LABS: Specific Gravity 1.008 (1.005-1.030); Urine Bacteria None Seen /HPF (<20); Urine Bilirubin NEGATIVE (Negative); Urine Blood Negative (Negative); Urine Clarity Clear (Clear); Urine Color Colorless (Yellow); Urine Glucose NEGATIVE (Negative); Urine Mucus Slight /HPF (None Seen); Urine Protein NEGATIVE (Negative); Urine RBC <5 /HPF (None Seen); Urine Urobilinogen Normal (Normal)
[2023-04-07] MEDS: HYDRALAZINE HCL 25 MG TABLET PO SCH (20:59)
[2023-04-07] MEDS: ATORVASTATIN 40 MG TAB PO SCH (20:59)
[2023-04-07] MEDS ORDERED: DOCUSATE NA/SENNA CONC 1 TAB PO PRN (23:31)
[2023-04-07] MEDS ORDERED: ACETAMINOPHEN 325 MG TABLET PO PRN (23:31)
[2023-04-08 00:50] VITALS: BMI 27.3
[2023-04-08 07:38] LABS: Absolute Lymphocytes (CBC) 1.4 K/uL (0.7-4.9); Hematocrit 36.2 % (36.0-45.0); Lymphocytes % 17.5 % (15.3-44.8); MCV 91.7 fL (80-100); MPV 8.6 fL (7.6-11.3); Platelets 176 thou/uL (152-406); RBC Red Blood Cell Count 3.95 M/uL (3.86-4.86)
[2023-04-08 07:58] LABS: Albumin 2.7 g/dL (3.4-5.0); Magnesium 1.7 mg/dL (1.6-2.4); Potassium 3.7 mEq/L (3.5-5.1)
[2023-04-08] MEDS ORDERED: [UNRECOGNIZED DRUG - OTHER] PO SCH (08:00)
[2023-04-08] MEDS: LOSARTAN POTASSIUM 50 MG TABLET PO SCH (08:33)
[2023-04-08] MEDS: ASPIRIN EC 81 MG TAB PO SCH (08:33)
[2023-04-08] MEDS: OCUVITE (VIT A,C & E/LUTEIN/MINERAL) TABLET PO SCH (08:33)
[2023-04-08] MEDS: MULTIVITAMIN TAB PO SCH (08:33)
[2023-04-08] MEDS: HYDRALAZINE HCL 25 MG TABLET PO SCH ×3 (08:33→20:27)
[2023-04-08] MEDS: TRAMADOL HCL 50 MG TAB PO PRN (08:34)
[2023-04-08 10:11] LABS: Prealbumin 13.6 mg/dL (20-40)
[2023-04-08] MEDS: PSYLLIUM 1 PKT PO SCH (10:11)
[2023-04-08] MEDS ORDERED: ENOXAPARIN 30 MG/0.3 ML SQ SCH (17:00)
[2023-04-08] MEDS: ATORVASTATIN 40 MG TAB PO SCH (20:27)
[2023-04-08] MEDS: APIXABAN 2.5 MG TABLET PO SCH (20:27)
[2023-04-08] MEDS: MAGNESIUM OXIDE 400 MG TAB PO SCH (20:27)
[2023-04-08] MEDS: ENSURE ENLIVE 237 ML CAN PO SCH (20:28)
--- NOTE | 2023-04-09 02:22 | HP ---
Date of Admission: 04/07/2023 Time Of Service: 1:30 p.m. Chief Complaint: "I fell helping my and broke my left hip." History Of Present Illness: Ms. Naylor is an 88-year-old right-handed patient with hypert ension, dyslipidemia, chronic kidney disease, who came to [facility] on April 04 after she attempted to hold her up as he was walking and she fell down. She impacted the left lowe r extremity and had severe pain, unable to bear weight and was brought to [facility]. She w as transferred to [facility] for higher level of care where she received open r eduction and internal fixation. Following surgery, she required [place], Tylenol, morphine as needed f or pain management. Also, she had hypertension and dyslipidemia, managed. Chronic kidney disease, a lso medically managed. She had leukocytosis that was monitored and addressed without need for additi onal antibiotics. She began to work with physical therapy as she is her 's primary caregiver and trying to come back to her baseline level of functioning. She was found to require moderate assi st for transfers, bed mobility, and she was dependent for lower body dressing, supervision for eating and grooming, and was only able to ambulate about 14 feet with a rolling walker. She is weightbeari ng as tolerated on the left lower extremity. She will benefit from aggressive physical and occupatio nal therapy as she begins to recover and return home to assist her . She is functioning well below her pre fall status, where she was fully independent and ambulate without restriction or an ass istive device, could go up and down steps without any issues, although her house is 1 level without s teps. As a result, she is an appropriate candidate for inpatient rehabilitation and is now admitted for physical and occupational therapy and medical management along with care home. Past Medical History: Chronic kidney disease, dyslipidemia, hypertension, transient global amnesia. Allergies: AMLODIPINE, , LISINOPRIL, PENICILLIN, NEBIVOLOL, AND CEFPROZIL. Family History: Noncontributory. Social History: Patient lives at home with . No alcohol, tobacco, or IV drug use. Medications: Tylenol 650 mg every 6 hours as needed, Fosamax 70 mg daily, Eliquis 2.5 mg twice daily , aspirin 81 mg daily, Lipitor 40 mg at bedtime, Apresoline 25 mg 3 times daily, Cozaar 50 mg daily, magnesium oxide 400 mg twice daily, melatonin 3 at bedtime, Centrum Silver 1 tablet daily, Ocuvite 1 tablet daily, Ensure Enlive 237 mL twice daily, Metamucil 1 packet daily, Senokot-S 2 at bedtime, tra madol 50 mg every 6 hours as needed. Laboratory Studies: Complete blood count differential shows white blood cell count 8.3, hemoglobin 1 2.2, hematocrit 36.2, platelets 176. Electrolyte panel shows sodium 141, potassium 3.7, chloride 109 , carbon dioxide 29, BUN 26, creatinine 1.17. Her prealbumin is 13.6, albumin 2.7, magnesium 1.7, ca lcium 8.5, glucose 97. Urinalysis completely normal. X-ray/imaging: X-ray showed left valgus-impacted femoral neck fracture when the patient came in on 0 04/04. Review of Systems: Currently, Ms. Naylor says her pain is 2/3. She has no nausea or vomiting. No fevers or chills. N o significant myalgias, arthralgias, rash, headache, weight change. No psychiatric issues. Denies a ny dermatological issues, any other positives on the systems review. Physical Examination: Vital Signs: Blood pressure 146/64, pulse 80, respiratory rate 16, temperature 97.0, O2 saturation 9 4%. Pain level max was 4, currently 0. Weight 145 pounds. Height 5 feet, 1 inch. BMI 27.4. General: Ms. Naylor is resting in bed. HEENT: She is normocephalic, atraumatic. Sclerae anicteric. Oropharynx pink and moist. Neck: Supple. Chest: Clear. Heart: Regular. Extremities: Show no clubbing, cyanosis, or edema. Neurological: Alert and oriented to person, place, time, and situation. Follows all commands approp riately. Her left hip fracture surgical site does show expected bruising, but has good hemostasis. Bandages i n place. She does say there is some slight itching around the area. Otherwise, in terms of her rest of her neurological examination, no focal weakness in upper and lower extremities, mild stocking-pascale ve loss and light touch temperature. No focal loss of reflexes. Current Level Of Functioning: Currently supervision for eating, oral hygiene, toilet hygiene, modera te assistance for showering, contact guard assistance for upper body dressing, dependent for lower terry dy dressing, and putting her shoes on and off, for rolling [id number] and [id number], moderate assistance. Sitting to lying, moderate assistance; lying to sitting on side of bed, moderate assista nce; [id number] moderate assistance; going from a chair to bed to transfer back and forth, moderate assistance. Toilet transfers, moderate assistance; ambulation, moderate assistance covering 14 feet with a rolling walker. Rehabilitation And Medical Assessment And Plan: Ms. Naylor is in the rehabilitation unit with impai rment category, 07 orthopedic lower extremity fracture. Her impairment group code is 08.11, status p ost unilateral hip fracture and her etiologic diagnosis is left femoral neck fracture. Other Comorbid Diagnoses: Decrease in physical functioning, dyslipidemia, hypertension, leukocytosis , chronic kidney disease, postsurgical pain, and elevated BUN. Plan: 1.She will have physical and occupational therapy for 3 hours a day, 5 of 7 days. 2.For her pain, tramadol will be used. 3.For osteoarthritis, alendronate. 4.For DVT prophylaxis, Eliquis. 5.For stroke risk reduction, aspirin. 6.For dyslipidemia, atorvastatin, hydralazine. 7.Losartan for blood pressure management. 8.Magnesium 400 mg twice daily for muscle spasms, melatonin for insomnia, and Metamucil for her cons tipation. She actually reports her last bowel movement was the Wednesday before admission, today is Wed. She normally goes to the toilet for stools about every 2 days. Impact Of Her Comorbidities: 1.Currently her renal issue will be followed by repeat electrolytes. She will be hydrated, currentl y the creatinine is slightly elevated. She also has hypertension, highest blood pressure reading sys tolic 184 and may make adjustments after 2 readings. 2.Her pain level is well managed and not a negative issue. 3.She does have risk of fractures as she does have brittle bone. She is on the Fosamax that is cont inued. Also mildly malnourished. Continue with the Ensure. Rehab Specific Plan: Ms. Nyalor will have 3 hours a day of therapy for physical and occupational di sciplines to improve her ability to transfer, to dress upper and lower body, to don and doff shoes, t o get on and off toilet, get on and off shower, and to ambulate household distances and beyond includ ing up to 500 feet or more with modified independence up and down 10 steps with modified independence . Also, medical management will be ongoing on daily basis, care home multiple times a day for evaluating the patient's vital signs for administering medications assessing and reporting and managi ng her pain. Ms. Naylor has a good understanding of the process of admission to the inpatient rehabilitation unit and the multidisciplinary approach to her care. She will have if need be services from Wound Care, Renal Service as appropriate. Given her complex medical condition and risk of further complications, rehabilitation cannot be safely or effectively carried out on the lower level facility such as [facility] nursing. Barriers To Discharge: Currently, her has had recent cardiac procedure and is dependent some what on her for his help, and she was helping him when she fell and the prospect of going back where she just had hip surgery to try to help him has been discussed and the patient voiced the opinion canelo t she would like to be in the rehab unit as much as possible, so she can help him, so that is a signi ficant barrier and the patient's family may have to be involved or the assistance of an outside help may have to be brought in. Estimated Length Of Stay: About 10 to 12 days. Disposition: Home with family. Prognosis: Good. Rehabilitation Goals: 1.Become independent with upper and lower body dressing and donning and doffing shoes. 2.Independent with ambulating 250 feet with a rolling walker. 3.Independent going up and down 25 steps with bilateral handrails. 4.Independent with her cognitive functioning. The above goals were reviewed with Ms. Naylor and she is in agreement. I acknowledge, I have personally performed a full physical examination on Ms. Naylor no later than 2 4 hours after admission to the inpatient rehabilitation facility and determined that she is able to t olerate the above course of treatment at an intensive level for a reasonable period of time. A detai led individualized plan of care for her will be completed by hospital day 4, based on the preadmissio n screen history and physical, and therapy evaluations. AILYN/JOAN Voice ID: [id number]
[2023-04-09] MEDS: ALENDRONATE 70 MG TAB PO SCH (05:14)
[2023-04-09] MEDS: HYDRALAZINE HCL 25 MG TABLET PO SCH ×3 (06:50→19:56)
[2023-04-09] MEDS: LOSARTAN POTASSIUM 50 MG TABLET PO SCH (06:50)
[2023-04-09] MEDS: ENSURE ENLIVE 237 ML CAN PO SCH (08:00)
[2023-04-09] MEDS: PSYLLIUM 1 PKT PO SCH (08:00)
[2023-04-09] MEDS: OCUVITE (VIT A,C & E/LUTEIN/MINERAL) TABLET PO SCH (08:31)
[2023-04-09] MEDS: ASPIRIN EC 81 MG TAB PO SCH (08:31)
[2023-04-09] MEDS: DOCUSATE NA/SENNA CONC 1 TAB PO SCH ×2 (08:31→19:56)
[2023-04-09] MEDS: APIXABAN 2.5 MG TABLET PO SCH ×2 (08:31→19:54)
[2023-04-09] MEDS: MULTIVITAMIN TAB PO SCH (08:31)
[2023-04-09] MEDS: TRAMADOL HCL 50 MG TAB PO PRN (08:53)
[2023-04-09] MEDS: MAGNESIUM OXIDE 400 MG TAB PO SCH ×2 (09:16→19:54)
--- NOTE | 2023-04-09 13:33 | P.RH.PN ---
Estimated Length of Stay: 12 Expected Discharge Date: 04/17/23 Discharge Disposition Plan: Home Family Support: Yes Correction Goal: Mobility, Transfers, Self Care Vital Signs: Last Vital Signs Temp 96.6 F L 04/09/23 07:15 Pulse 74 04/09/23 07:15 Resp 17 04/09/23 08:53 BP 196/85 H 04/09/23 07:15 Pulse Ox 95 04/09/23 08:53 Laboratory: Laboratory Last Values WBC 8.30 thou/uL (4.3-10.9) 04/08/23 06:59 RBC 3.95 M/uL (3.86-4.86) 04/08/23 06:59 Hgb 12.2 g/dL (12.0-15.0) 04/08/23 06:59 Hct 36.2 % (36.0-45.0) 04/08/23 06:59 MCV 91.7 fL (80-100) 04/08/23 06:59 MCH 30.9 pg (27.0-35.0) 04/08/23 06:59 MCHC 33.7 g/dL (32.0-36.0) 04/08/23 06:59 RDW 13.3 % (12.1-15.2) 04/08/23 06:59 Plt Count 176 thou/uL (152-406) 04/08/23 06:59 MPV 8.6 fL (7.6-11.3) 04/08/23 06:59 Neutrophils % 55.2 % (41.7-73.7) 04/08/23 06:59 Lymphocytes % 17.5 % (15.3-44.8) 04/08/23 06:59 Monocytes % 16.2 % (3.3-12.3) H 04/08/23 06:59 Eosinophils % 10.5 % (0-4.4) H 04/08/23 06:59 Basophils % 0.6 % (0-1.3) 04/08/23 06:59 Absolute Neutrophils 4.6 K/uL (1.8-8.0) 04/08/23 06:59 Absolute Lymphocytes 1.4 K/uL (0.7-4.9) 04/08/23 06:59 Absolute Monocytes 1.3 K/uL (0.1-1.3) 04/08/23 06:59 Absolute Eosinophils 0.9 K/uL (0-0.5) H 04/08/23 06:59 Absolute Basophils 0.1 K/uL (0-0.5) 04/08/23 06:59 Sodium 141 mEq/L (136-145) 04/08/23 06:59 Potassium 3.7 mEq/L (3.5-5.1) 04/08/23 06:59 Chloride 109 mEq/L (98-107) H 04/08/23 06:59 Carbon Dioxide 29 mEq/L (21-32) 04/08/23 06:59 Anion Gap 6.7 mEq/L (5.0-15.0) 04/08/23 06:59 BUN 26 mg/dL (7-18) H 04/08/23 06:59 Creatinine 1.17 mg/dL (0.55-1.02) H 04/08/23 06:59 Est GFR (CKD-EPI) 45 ml/min (=/>90) L 04/08/23 06:59 Glucose 97 mg/dL (74-106) 04/08/23 06:59 Calcium 8.5 mg/dL (8.5-10.1) 04/08/23 06:59 Magnesium 1.7 mg/dL (1.6-2.4) 04/08/23 06:59 Albumin 2.7 g/dL (3.4-5.0) L 04/08/23 06:59 Prealbumin 13.6 mg/dL (20-40) L 04/08/23 06:59 Urine Color Colorless (Yellow) 04/07/23 18:38 Urine Clarity Clear (Clear) 04/07/23 18:38 Urine pH 5.0 (5.0-7.0) 04/07/23 18:38 Ur Specific [place] 1.008 (1.005-1.030) 04/07/23 18:38 Glucose (UA)(Auto) Negative (Negative) 04/07/23 18:38 Urine Ketones Negative (Negative) 04/07/23 18:38 Urine Blood Negative (Negative) 04/07/23 18:38 Urine Nitrite Negative (Negative) 04/07/23 18:38 Urine Bilirubin Negative (Negative) 04/07/23 18:38 Urine Urobilinogen Normal (Normal) 04/07/23 18:38 Ur Leukocyte Esterase Negative [place]/uL (Negative) 04/07/23 18:38 Urine RBC <5 /HPF (None Seen) 04/07/23 18:38 Urine WBC <5 /HPF (<5) 04/07/23 18:38 Ur Squamous Epith Cells None seen /HPF (None Seen) 04/07/23 18:38 U Non-Squamous Epi Cells <5 /HPF (None Seen) 04/07/23 18:38 Urine Bacteria None seen /HPF (<20) 04/07/23 18:38 Urine Mucus Slight /HPF (None Seen) 04/07/23 18:38 Urine Culture Reflexed Not needed 04/07/23 18:38 Urine Total Protein Negative (Negative) 04/07/23 18:38 Weight: 145 lb Wound Present: No Closed Surgical Incision Present: Yes Negative Pressure Wound Therapy Present: No Physician Update: Labs reviewed and are stable. Mildly increased Stove Mechanic and low prealbumin. BIMS 15. Pain is well controlled with Tylenol. She has no BM in 6 days. Walking 300' with RW with SBA. Min assistance for bed mobility and transfers. Max assitance for car transfer. Met 3/5 of short term goals with occupational therapy. Summary: Patient's care plan and jail goals have been reviewed and revised as necessary. Please see the Rehabilitation Signature page for all necessary signatures.
[2023-04-09] MEDS ORDERED: BISACODYL 10 MG RECTAL SUPP PR PRN (13:45)
[2023-04-09] MEDS: HYDROCORTISONE 1 % CREAM 30GM TOP PRN (14:27)
--- NOTE | 2023-04-09 14:58 | P.HP ---
Certification for Inpatient Patient admitted to: Inpatient With expected LOS: >2 Midnights Practitioner: I am a practitioner with admitting privileges, knowledge of patient current condition, hospital course, and medical plan of care. Services: Services provided to patient in accordance with Admission requirements found in Title 42 Section 412.3 of the Code of Federal Regulations Patient History Date of Service: 04/09/23 Reason for admission: BROKE L HIP History of Present Illness: SULLY WAS TRYING TO HELP WHO WAS TRYING TO WALK WITH CANE AND BOTH FELL. SHE BROKE HER L HIP. SURGERY BY TEOFILO ALMAGUER. SHE IS NOW HERE FOR PT. HER SUPINE BP IS HIGH, BUT DROPS LOWER THAN NORMAL WHEN STANDS UP. Allergies amlodipine Allergy (Verified 04/07/23 18:49) Nausea/Vomiting cefaclor [From Ceclor] Allergy (Verified 04/07/23 18:49) Itching cefprozil [From Cefzil] Allergy (Verified 04/07/23 18:49) Itching lisinopril Allergy (Verified 04/07/23 18:49) Nausea/Vomiting nebivolol [From Bystolic] Allergy (Verified 04/07/23 18:49) Nausea/Vomiting Penicillins Allergy (Verified 04/07/23 18:49) Itching Home Medications: Alendronate Sodium 70 mg PO EVERY 7TH DAY 04/07/23 Aspirin [Aspirin EC 81 MG] 81 mg PO DAILY 04/07/23 Ca Citrate/Mgox/Vit D3/B6/Min [Citracal Plus Tablet] 1 each PO DAILY 04/07/23 Enoxaparin Sodium [Lovenox 30 MG INJ] 30 mg SQ DAILY 04/07/23 Estradiol [Estrace] 2 mg PO EVERY 7TH DAY 04/07/23 Hydralazine [Apresoline] 25 mg PO TID 04/07/23 Losartan Potassium [Cozaar] 50 mg PO DAILY 04/07/23 Multivitamin/Iron/Folic Acid [Centrum Adults Tablet] 1 each PO DAILY 04/07/23 Pravastatin [Pravachol] 40 mg PO BEDTIME 04/07/23 Psyllium Husk [Metamucil] 1 packet PO DAILY 04/07/23 Tramadol HCl [Ultram] 50 mg PO Q6H PRN 04/07/23 Vit A,C & E/Lutein/Minerals [I-Efrem Tablet] 1 tab PO DAILY 04/07/23 - Past Medical/Surgical History Has patient received pneumonia vaccine in the past: Yes Diabetic: No -: htn -: hld -: ckd -: lt hip replace 04/05/23 - Social History Smoking Status: Never smoker Alcohol use: No CD- Drugs: No Caffeine use: Yes Place [facility] Review of Systems 10-point ROS is otherwise unremarkable Physical Examination - Vital Signs Temperature: 96.6 F Blood Pressure: 196/85 Pulse: 74 Respirations: 17 Pulse Ox (%): 95 - Physical Exam General: Oriented x3, Mild distress HEENT: Atraumatic, PERRLA, Mucous membr. moist/pink, EOMI, Sclerae nonicteric Neck: Supple, 2+ carotid pulse no bruit, No LAD, Without JVD or thyroid abnormality Respiratory: Clear to auscultation bilaterally, Normal air movement Cardiovascular: Regular rate/rhythm, Normal S1 S2 Gastrointestinal: Normal bowel sounds, No tenderness Musculoskeletal: No tenderness Integumentary: No rashes Neurological: Normal gait, Normal speech, Normal strength at 5/5 x4 extr, Normal tone, Normal affect Lymphatics: No axilla or inguinal lymphadenopathy - Studies Microbiology Data (last 24 hrs): 04/07/23 18:38 Clean Catch Urine [place] Count - Final <10,000 CFU/ML. 04/07/23 18:38 Clean Catch Urine - Final MIXED OSKAR. Assessment and Plan - Problems (Diagnosis) (1) Hip fracture, left Current Visit: Yes Status: Acute Plan: PT PAIN CONTROL (2) Orthostatic hypotension Current Visit: Yes Status: Acute Plan: THIS IS NEW IN MY OPINION. CHECK RENOVASCUALR DOPPLER KEEP HER AT 45 DEG TRIAL OF PYRIDOSTIGMINE. I SEE NO SIGNS OF HANSEL'S, SEPSIS ETC. (3) Supine hypertension Current Visit: Yes Status: Acute - Advance Directives Does patient have a Living Will: Yes Does patient have a Durable POA for Healthcare: No
[2023-04-09] MEDS ORDERED: FLEET ENEMA ADULT PR ONE (16:45)
[2023-04-09] MEDS: ENSURE CLEAR 200 ML CAN PO SCH (19:54)
[2023-04-09] MEDS: PYRIDOSTIGMINE 60 MG TABLET PO SCH (19:55)
[2023-04-09] MEDS: ATORVASTATIN 40 MG TAB PO SCH (19:56)
[2023-04-09] MEDS: MELATONIN 3 MG TABLET PO PRN (19:57)
[2023-04-09] MEDS ORDERED: AMINO ACIDS/PROTEIN HYDROLYS 30 ML LIQUID.PKT PO SCH (20:00)
[2023-04-10] MEDS: METAMUCIL PO SCH ×2 (08:00→08:25)
[2023-04-10] MEDS ORDERED: METAMUCIL PO SCH (08:00)
[2023-04-10] MEDS: DOCUSATE NA/SENNA CONC 1 TAB PO SCH (08:00)
[2023-04-10] MEDS ORDERED: DOCUSATE NA/SENNA CONC 1 TAB PO PRN (08:21)
[2023-04-10] MEDS: ASPIRIN EC 81 MG TAB PO SCH (08:22)
[2023-04-10] MEDS: MAGNESIUM OXIDE 400 MG TAB PO SCH ×2 (08:22→19:54)
[2023-04-10] MEDS: HYDRALAZINE HCL 25 MG TABLET PO SCH ×3 (08:22→19:54)
[2023-04-10] MEDS: APIXABAN 2.5 MG TABLET PO SCH ×2 (08:22→19:55)
[2023-04-10] MEDS: LOSARTAN POTASSIUM 50 MG TABLET PO SCH (08:22)
[2023-04-10] MEDS: HYDROCORTISONE 1 % CREAM 30GM TOP PRN (08:22)
[2023-04-10] MEDS: MULTIVITAMIN TAB PO SCH (08:23)
[2023-04-10] MEDS: PYRIDOSTIGMINE 60 MG TABLET PO SCH ×2 (08:23→19:54)
[2023-04-10] MEDS: ENSURE CLEAR 200 ML CAN PO SCH ×2 (08:23→19:55)
[2023-04-10] MEDS: OCUVITE (VIT A,C & E/LUTEIN/MINERAL) TABLET PO SCH (08:23)
--- NOTE | 2023-04-10 08:53 | RAD REPORT ---
EXAM DESCRIPTION: US - Abdomen Pelvis Scan US - 04/10/2023 6:42 am CLINICAL HISTORY: High blood pressure RENAL ARTERY DOPPLER BILAT PL. COMPARISON: No comparisons FINDINGS: Both kidneys are mildly echogenic. Right kidney measures 9.5 x 3.9 x 3.5 cm. Left kidney m easures 7.4 x 3.7 x 3.3 cm. Aortic velocity: 49.8 cm/second Right proximal renal artery: 37.5 cm/second Right mid renal artery: 42.1 cm/second Right distal renal artery: 33.2 cm/second Right renal arcuate artery resistive index: 0.8 Right renal artery / aorta ratio: 0.7 Left proximal renal artery: 106 cm/second Left mid renal artery: 49.3 cm/second Left distal renal artery: 39.1 cm/second Left renal arcuate artery resistive index: 0.8 Left renal artery/aorta ratio: 0.9 Normal waveforms demonstrated within the bilateral renal arteries. IMPRESSION: No evidence of hemodynamically significant stenosis within the bilateral renal arteries. Bilateral mildly echogenic kidneys are present noted which would suggests underlying medical renal di sease.
--- NOTE | 2023-04-10 19:40 | PN ---
Date of Progress Note: 04/10/2023 Time Of Service: 2:30 p.m. Subjective: Ms. Naylor is resting comfortably in bed. She says she has no pain when lying in bed a nd perhaps 2-3 when weightbearing on the left lower extremity where she has a left femoral neck fract ure. She denies any complaints and is actually happy that she had a bowel movement after about 7 day s. She had 1 earlier today. Last time, she had a bowel movement was on Wednesday and at today is now S , that is last Wednesday. Otherwise, she is sleeping well and she is eating well and denies any other issues. Review of Systems: No fevers, chills, nausea, vomiting, myalgias, arthralgias, headache, weight change. No rash. No ps ychiatric issues. No genitourinary issues and again had a good bowel movement. Physical Examination: Vital Signs: Blood pressure 140/65, pulse 77, respiratory rate 16, temperature 97.2, oxygen saturati on 96%. General: Ms. Naylor is resting in bed. She is normocephalic, atraumatic. Sclerae anicteric. Orop harynx pink and moist. Neck: Supple. Chest: Clear. Extremities: Her left hip surgical site shows good hemostasis. No significant clubbing, cyanosis, o r edema in either lower extremities. Laboratory Studies: No new laboratory studies. X-rays/imaging: No new x-rays or imaging. Medications: Tylenol 650 mg every 6 hours as needed, Fosamax 70 mg daily, Eliquis 2.5 mg twice daily , aspirin 81 mg daily, Lipitor 40 mg at bedtime, Ensure Enlive 237 mL twice daily, Glycolax as needed 10 mg per rectum for constipation, Apresoline 25 mg twice daily, losartan 50 mg daily, magnesium oxi de 400 mg twice daily, melatonin 3 mg at bedtime, Centrum Silver 1 tablet daily, Ocuvite 1 tablet lindsey ly, Mestinon 30 mg twice daily, Senokot-S 2 at bedtime, tramadol 50 mg every 6 hours as needed. Current Functional Status: Today, she was able to complete oral care with supervision. She did sit to stand with a front wheel walker with contact guard assistance. She was able to ambulate 250 feet, another 350 feet, and another 250 feet twice with contact guard assistance with a rolling walker. S he did require some verbal cues to maintain proximity to the rolling walker new. Progress Towards Rehabilitation Goals: Ms. Naylor is making excellent progress towards her goals of becoming modified independent with upper and lower body dressing, toileting, transferring, showering , ambulating 500 feet with modified independence, up and down 25 steps with modified independence and continuing her cognitive functioning with modified independence. Assessment: Ms. Naylor is an 88-year-old patient in the rehabilitation unit with left femoral neck fracture, status post open reduction internal fixation. She has decreased mobility, dyslipidemia, hy pertension, leukocytosis, chronic kidney disease. Plan: 1.Continue with physical and occupational therapy for 3 hours daily 5 of 7 days. 2.Continue with alendronate for osteomyelitis. 3.Eliquis for DVT prophylaxis. 4.Aspirin for stroke risk reduction. 5.Continue with losartan and hydralazine for hypertension and atorvastatin for dyslipidemia. 6.Continue melatonin for insomnia, Senokot S, and suppository as appropriate for constipation. Comorbids That Continue To Impact Rehabilitation Process: Currently, she is no longer constipated an d had very good bowel movements after 7 days. Her other comorbid conditions are well managed and do not negatively impact her rehabilitation. LB/MODL Voice ID: [id number] Report ID: [id number]
[2023-04-10] MEDS: MELATONIN 3 MG TABLET PO PRN (19:54)
[2023-04-10] MEDS: ATORVASTATIN 40 MG TAB PO SCH (19:54)
[2023-04-11] MEDS: METAMUCIL PO SCH ×2 (07:50→08:00)
[2023-04-11] MEDS: ENSURE CLEAR 200 ML CAN PO SCH ×3 (07:50→20:04)
[2023-04-11] MEDS: MULTIVITAMIN TAB PO SCH (07:50)
[2023-04-11] MEDS: PYRIDOSTIGMINE 60 MG TABLET PO SCH ×2 (07:51→20:04)
[2023-04-11] MEDS: OCUVITE (VIT A,C & E/LUTEIN/MINERAL) TABLET PO SCH (07:51)
[2023-04-11] MEDS: HYDRALAZINE HCL 25 MG TABLET PO SCH ×3 (07:51→20:03)
[2023-04-11] MEDS: ASPIRIN EC 81 MG TAB PO SCH (07:52)
[2023-04-11] MEDS: MAGNESIUM OXIDE 400 MG TAB PO SCH ×2 (07:52→20:03)
[2023-04-11] MEDS: APIXABAN 2.5 MG TABLET PO SCH ×2 (07:52→20:03)
[2023-04-11] MEDS: LOSARTAN POTASSIUM 50 MG TABLET PO SCH (09:54)
[2023-04-11] MEDS: ATORVASTATIN 40 MG TAB PO SCH (20:03)
--- NOTE | 2023-04-11 20:26 | P.PN ---
Subjective Date of Service: 04/10/23 Chief Complaint: BROKE Jes HIP Subjective: Improving SHE IS NOT DIZZY OR HAS NO HEADACHES. Review of Systems 10-point ROS is otherwise unremarkable Physical Examination - Vital Signs Temperature: 97.2 F Blood Pressure: 139/57 Pulse: 78 Respirations: 18 Pulse Ox (%): 97 - Physical Exam General: Alert, In no apparent distress HEENT: Atraumatic, PERRLA, EOMI Neck: Supple, JVD not distended Respiratory: Clear to auscultation bilaterally, Normal air movement Cardiovascular: Regular rate/rhythm, Normal S1 S2 Gastrointestinal: Normal bowel sounds, No tenderness Musculoskeletal: No tenderness Integumentary: No rashes Neurological: Normal speech, Normal tone, Normal affect Lymphatics: No axilla or inguinal lymphadenopathy - Studies Medications List Reviewed: Yes Assessment And Plan - Current Problems (Diagnosis) (1) Hip fracture, left Current Visit: Yes Status: Acute Plan: PT PAIN CONTROL (2) Orthostatic hypotension Current Visit: Yes Status: Acute Plan: THIS IS NEW IN MY OPINION. CHECK RENOVASCUALR DOPPLER KEEP HER AT 45 DEG TRIAL OF PYRIDOSTIGMINE. I SEE NO SIGNS OF HANSEL'S, SEPSIS ETC. TOLERATES MEDS WELL. (3) Supine hypertension Current Visit: Yes Status: Acute
--- NOTE | 2023-04-11 20:28 | P.PN ---
Subjective Date of Service: 04/11/23 Chief Complaint: ESKE Jes HIP Subjective: Improving (SHE HAS NO COMPLAINTS) SHE IS NOT DIZZY OR HAS NO HEADACHES. Physical Examination - Vital Signs Temperature: 97.2 F Blood Pressure: 139/57 Pulse: 78 Respirations: 18 Pulse Ox (%): 97 - Physical Exam General: Alert, In no apparent distress HEENT: Atraumatic, PERRLA, EOMI Neck: Supple, JVD not distended Respiratory: Clear to auscultation bilaterally, Normal air movement Cardiovascular: Regular rate/rhythm, Normal S1 S2 Gastrointestinal: Normal bowel sounds, No tenderness Musculoskeletal: No tenderness Integumentary: No rashes Neurological: Normal speech, Normal tone, Normal affect Lymphatics: No axilla or inguinal lymphadenopathy - Studies Medications List Reviewed: Yes Assessment And Plan - Current Problems (Diagnosis) (1) Hip fracture, left Current Visit: Yes Status: Acute Plan: PT PAIN CONTROL (2) Orthostatic hypotension Current Visit: Yes Status: Acute Plan: THIS IS NEW IN MY OPINION. CHECK RENOVASCUALR DOPPLER KEEP HER AT 45 DEG TRIAL OF PYRIDOSTIGMINE. I SEE NO SIGNS OF HANSEL'S, SEPSIS ETC. TOLERATES MEDS WELL. NOT DROPPING ANY LONGER AFTER STARTING PYRIDOSTIGMINE. (3) Supine hypertension Current Visit: Yes Status: Acute
[2023-04-12] MEDS: PYRIDOSTIGMINE 60 MG TABLET PO SCH ×2 (07:55→20:05)
[2023-04-12] MEDS: OCUVITE (VIT A,C & E/LUTEIN/MINERAL) TABLET PO SCH (07:55)
[2023-04-12] MEDS: HYDRALAZINE HCL 25 MG TABLET PO SCH ×3 (07:55→20:05)
[2023-04-12] MEDS: APIXABAN 2.5 MG TABLET PO SCH ×2 (07:56→20:05)
[2023-04-12] MEDS: MAGNESIUM OXIDE 400 MG TAB PO SCH ×2 (07:56→20:05)
[2023-04-12] MEDS: ASPIRIN EC 81 MG TAB PO SCH (07:57)
[2023-04-12] MEDS: MULTIVITAMIN TAB PO SCH (07:57)
[2023-04-12] MEDS: METAMUCIL PO SCH (07:58)
[2023-04-12] MEDS: TRAMADOL HCL 50 MG TAB PO PRN (08:00)
[2023-04-12] MEDS: LOSARTAN POTASSIUM 50 MG TABLET PO SCH (10:11)
--- NOTE | 2023-04-12 18:03 | P.PN ---
Subjective Date of Service: 04/12/23 Chief Complaint: ESKE Jes HIP Subjective: Improving SHE IS NOT DIZZY OR HAS NO HEADACHES. SHE IS DOING GREAT NO ISSUES. Review of Systems 10-point ROS is otherwise unremarkable General: Weakness Physical Examination - Vital Signs Temperature: 96.5 F Blood Pressure: 132/63 Pulse: 76 Respirations: 16 Pulse Ox (%): 95 - Physical Exam General: Oriented x3, Mild distress HEENT: Atraumatic, PERRLA, EOMI Neck: Supple, JVD not distended Respiratory: Clear to auscultation bilaterally, Normal air movement Cardiovascular: Regular rate/rhythm, Normal S1 S2 Gastrointestinal: Normal bowel sounds, No tenderness Musculoskeletal: No tenderness Integumentary: No rashes Neurological: Normal speech, Normal tone, Normal affect Lymphatics: No axilla or inguinal lymphadenopathy - Studies Medications List Reviewed: Yes Assessment And Plan - Current Problems (Diagnosis) (1) Hip fracture, left Current Visit: Yes Status: Acute Plan: PT PAIN CONTROL (2) Orthostatic hypotension Current Visit: Yes Status: Acute Plan: THIS IS NEW IN MY OPINION. CHECK RENOVASCUALR DOPPLER KEEP HER AT 45 DEG TRIAL OF PYRIDOSTIGMINE. I SEE NO SIGNS OF HANSEL'S, SEPSIS ETC. TOLERATES MEDS WELL. NOT DROPPING ANY LONGER AFTER STARTING PYRIDOSTIGMINE. IMPROVED WELL CONT MEDS. (3) Supine hypertension Current Visit: Yes Status: Acute
[2023-04-12] MEDS: ATORVASTATIN 40 MG TAB PO SCH (20:05)
--- NOTE | 2023-04-13 02:19 | PN ---
Date of Progress Note: 04/12/2023 Time Of Service: 1:50 p.m. Subjective: Ms. Naylor is doing excellent. She has no new complaints. She is very happy with her therapy. She denies pain in the right femoral neck area, where she has a fracture that was repaired by open reduction internal fixation. Review of Systems: No fevers, chills, nausea, vomiting, myalgias, arthralgias, rash, headache, weight change. Very elgin le pain as she ambulates. Physical Examination: Vital Signs: Blood pressure 132/63, pulse 76, respiratory rate 16, temperature 97.2, oxygen saturati on 95%. General: Ms. Naylor is resting in bed. She is in no acute distress. HEENT: She is normocephalic, atraumatic. Sclerae anicteric. Oropharynx is moist. Neck: Supple. Chest: Clear. Heart: Regular. Extremities: Show no significant clubbing, cyanosis, or edema. Neurological: No focal neurological deficits. Laboratory Studies: No new laboratory studies. X-rays/imaging: No new x-rays or imaging. Medications: Medications have been reviewed and remain unchanged. Current Functional Status: Currently she ambulated 350 feet twice, 250 feet once, 500 feet once, ano ther 175 feet twice with contact guard assistance. She ascended and descended 15 steps with bilatera l hand rails. Xjb-ju-slove transfers done with contact guard assistance. Per Occupational Therapy, supervision for toilet transfers and shower transfers. She used a rolling walker to ambulate to the room with supervision. Progress Towards Rehabilitation Goals: Ms. Naylor is making excellent progress towards her goals of becoming independent with upper and lower body dressing, transferring, toileting, showering, ambulat ing 500 feet with independence, up and down 25 steps with independence and continue to perform all of her ADLs and cognitive functioning with independence. Assessment: Ms. Naylor is an 88-year-old patient in the rehabilitation unit with left femoral neck fracture, status post open reduction and internal fixation. She is doing excellent per physical, occ upational, and speech therapy. She has dyslipidemia, hypertension, leukocytosis, and chronic kidney disease and are managed well and her primary care physician is also participating in her care. Plan: 1.Continue with physical and occupational therapy for 3 hours a day, 5 of 7 days. 2.Continue to manage her multiple comorbid condition as noted above which include losartan, atorvast atin, melatonin, Senokot, Eliquis, and alendronate. Comorbidities That Continue To Impact Rehabilitation: At this point, all of her comorbidities are st ably managed and do not negatively impact her rehabilitation. Her biggest issue may be having to go back home and take care of her sick , which is she says reason why she fell as she was helping him, as he went down, she went down with him. The patient is planning to have assistance when she g oes home. AILYN/JOAN Voice ID: [id number] Report ID: [id number]
[2023-04-13] MEDS: METAMUCIL PO SCH (07:35)
[2023-04-13] MEDS: ASPIRIN EC 81 MG TAB PO SCH (07:37)
[2023-04-13] MEDS: MULTIVITAMIN TAB PO SCH (07:37)
[2023-04-13] MEDS: OCUVITE (VIT A,C & E/LUTEIN/MINERAL) TABLET PO SCH (07:37)
[2023-04-13] MEDS: MAGNESIUM OXIDE 400 MG TAB PO SCH ×2 (07:37→19:57)
[2023-04-13] MEDS: APIXABAN 2.5 MG TABLET PO SCH ×2 (07:37→19:57)
[2023-04-13] MEDS: PYRIDOSTIGMINE 60 MG TABLET PO SCH ×2 (07:37→19:57)
[2023-04-13] MEDS: HYDRALAZINE HCL 25 MG TABLET PO SCH ×4 (07:37→19:57)
[2023-04-13] MEDS: TRAMADOL HCL 50 MG TAB PO PRN ×2 (07:38→12:30)
[2023-04-13] MEDS: LOSARTAN POTASSIUM 50 MG TABLET PO SCH (09:54)
[2023-04-13] MEDS: ATORVASTATIN 40 MG TAB PO SCH (19:57)
--- NOTE | 2023-04-13 20:32 | PN ---
Date of Progress Note: 04/13/2023 Wqrw-zs-Nrms Progress Note Visit. Time Of Service: 1:55 p.m. Subjective: Ms. Naylor is doing very well. She is very happy with her therapy and able to do every thing, and then some that she is asked of, and has little to no pain despite coming in with a left fe moral neck fracture, status post surgical repair. Review of Systems: No fevers, chills, nausea, vomiting. No significant myalgias, arthralgias, rash, headache, weight ch dallin. No psychiatric complaints. No other positives on a 10-point systems review. Physical Examination: Vital Signs: Blood pressure 124/59, pulse 78, respiratory rate 16, temperature 97.2, oxygen saturati on 95%. She had orthostatics that were negative. She has no focal neurological deficits. Lungs: Clear to auscultation. Heart: Regular. Abdomen: Soft. Extremities: No significant clubbing, cyanosis, or edema. Laboratory Studies: No new laboratory studies. X-rays/imaging: No new x-rays or imaging. Medications: Her medications have been reviewed and remained unchanged. Current Functional Status: Today, she walked 100 feet twice with a Rollator independently, completed 15 steps with bilateral handrails independently. She also ambulated another 350 feet twice, another 500 feet once with standby assistance, and ascended and descended 15 steps independently. With her occupational therapy, independent with ambulation from room to gym and independent with toileting wit h a rolling walker. Also toilet hygiene done independently. Progress Towards Rehabilitation Goals: Ms. Naylor is making excellent progress towards her goals of becoming independent with upper and lower body dressing, transferring, toileting, ambulating 350 fee t independently, about 50 steps independently, and continuing to perform her cognitive functioning in dependently. Assessment: Ms. Naylor is an 88-year-old patient in the rehabilitation unit with a left femoral nec k fracture, status post open reduction and internal fixation and she is doing excellent with physical and occupational therapy. Plan: 1.Continue with physical and occupational therapy for 3 hours a day, 5 of 7 days. 2.She does have hypertension, chronic kidney disease, and leukocytosis that are stably managed. She also has dyslipidemia. She will continue all medications for those conditions, which are partly man aged by Dr. Murillo. Comorbidities That Continue To Impact Rehabilitation: Her rehabilitation is not impacted by her amadeo rbidities as they are stably managed including pain and the patient's worry about going back home bec ause she has to take care of her is also alleviated some as she says her is now copin g a lot better on his own since she has been in the hospital and she plans to not try to lift or move him, which actually resulted in her fall. AILYN/JOAN Voice ID: [id number] Report ID: [id number]
[2023-04-13] MEDS ORDERED: ESTRADIOL VAG SCH (21:00)
[2023-04-13] MEDS ORDERED: ESTRADIOL 0.01% VAG SCH (21:00)
--- NOTE | 2023-04-13 21:35 | P.PN ---
Subjective Date of Service: 04/13/23 Chief Complaint: BROKE L HIP SHE IS NOT DIZZY OR HAS NO HEADACHES. SHE IS DOING GREAT NO ISSUES. SHE HAS NO ISSUES FOR NOW. Physical Examination - Vital Signs Temperature: 97.6 F Blood Pressure: 142/63 Pulse: 72 Respirations: 18 Pulse Ox (%): 95 - Physical Exam General: Alert, In no apparent distress HEENT: Atraumatic, PERRLA, EOMI Neck: Supple, JVD not distended Respiratory: Clear to auscultation bilaterally, Normal air movement Cardiovascular: Regular rate/rhythm, Normal S1 S2 Gastrointestinal: Normal bowel sounds, No tenderness Musculoskeletal: No tenderness Integumentary: No rashes Neurological: Normal speech, Normal tone, Normal affect Lymphatics: No axilla or inguinal lymphadenopathy - Studies Medications List Reviewed: Yes Assessment And Plan - Current Problems (Diagnosis) (1) Hip fracture, left Current Visit: Yes Status: Acute Plan: PT PAIN CONTROL (2) Orthostatic hypotension Current Visit: Yes Status: Acute Plan: THIS HAS RESOLVED BEING ON PYRIDOSTIGMINE WILL FU. (3) Supine hypertension Current Visit: Yes Status: Acute
[2023-04-14 03:42] LABS: Absolute Lymphocytes (CBC) 1.9 K/uL (0.7-4.9); Hematocrit 35.6 % (36.0-45.0); Lymphocytes % 21.3 % (15.3-44.8); MCV 90.9 fL (80-100); Platelets 273 thou/uL (152-406); RBC Red Blood Cell Count 3.92 M/uL (3.86-4.86)
[2023-04-14] MEDS ORDERED: [UNRECOGNIZED DRUG - OTHER] PO SCH (08:00)
[2023-04-14] MEDS: MULTIVITAMIN TAB PO SCH (08:50)
[2023-04-14] MEDS: OCUVITE (VIT A,C & E/LUTEIN/MINERAL) TABLET PO SCH (08:50)
[2023-04-14] MEDS: PYRIDOSTIGMINE 60 MG TABLET PO SCH ×2 (08:50→19:45)
[2023-04-14] MEDS: ASPIRIN EC 81 MG TAB PO SCH (08:50)
[2023-04-14] MEDS: APIXABAN 2.5 MG TABLET PO SCH ×2 (08:50→19:45)
[2023-04-14] MEDS: MAGNESIUM OXIDE 400 MG TAB PO SCH ×2 (08:51→19:46)
[2023-04-14] MEDS: LOSARTAN POTASSIUM 50 MG TABLET PO SCH (08:53)
[2023-04-14] MEDS: TRAMADOL HCL 50 MG TAB PO PRN (08:53)
[2023-04-14] MEDS: HYDRALAZINE HCL 25 MG TABLET PO SCH ×3 (08:55→19:45)
[2023-04-14] MEDS: METAMUCIL PO SCH (08:55)
[2023-04-14] MEDS: ATORVASTATIN 40 MG TAB PO SCH (19:45)
--- NOTE | 2023-04-14 20:47 | PN ---
Date of Progress Note: 04/14/2023 Hizo-cs-Ccqy Progress Note Visit. Time Of Service: 1:45 p.m. Subjective: Ms. Naylor is doing excellent. She has no complaints. She is quite happy with her the rapy so far and is excited about going home this weekend. Review of Systems: No fevers, chills, nausea, vomiting, myalgias, arthralgias. No other complaints even at the site of surgery in the left femoral hip fracture. Physical Examination: Vital Signs: Blood pressure 125/58, pulse 86, respiratory rate 16, temperature 97.6, oxygen saturati on 97%. General: Ms. Naylor is resting in bed. She is in no acute distress. HEENT: She is normocephalic, atraumatic. Sclerae anicteric. Oropharynx is pink and moist. Neck: Supple. Chest: Clear. Heart: Regular. Extremities: Show no significant edema, cyanosis, or clubbing. Laboratory Studies: Complete blood count with differential is essentially unremarkable. Her sodium 138, potassium 4.0, chloride 106, carbon dioxide 28, BUN 28, creatinine 1.3, glucose 103, calcium 8.6 . Note, her creatinine did increase from 1.17 on the 7th to 1.3 on the 13th, consistent with some de hydration. X-ray/imaging: No new x-rays or imaging. Medications: Medications have been reviewed and remained unchanged. Current Functional Status: Today, she was independent with bed mobilization, transfers independent. She was able to ambulate 350 feet twice, 500 feet once with standby assistance. Tir-qu-hgius perfor med independently, ipf-xh-fvzti transfers also independently. With occupational therapy, independent with bed mobility, ambulating from room to gym also done independently. Progress Towards Rehabilitation Goals: Ms. Naylor is making excellent progress towards her goals of becoming independent with upper and lower body dressing, transferring, toileting, ambulating 500 fee t independently, up and down 20 steps independently, and continuing to perform cognitive functioning independently. Assessment: Ms. Naylor is an 88-year-old patient who is in the rehabilitation unit with a left femo ral neck fracture, status post surgical repair, who is making excellent progress to her physical and occupational therapy. She does have comorbidities, which include chronic kidney disease, dyslipidemi a, hypertension, osteoarthritis, chronic pain, and insomnia. She will continue with medications, whi ch include Ultram, Mestinon, Ocuvite, melatonin, Cozaar, Apresoline, aspirin, Eliquis, Fosamax, Tylen ol, and Lipitor. Comorbidities That Continue To Impact The Rehabilitation Process: Currently, her comorbidities are s tably managed and do not negatively impact her rehabilitation and she is managed by her primary care physician, Dr. Murillo while in the unit. AILYN/JOAN Voice ID: [id number] Report ID: [id number]
--- NOTE | 2023-04-14 21:10 | P.PN ---
Subjective Date of Service: 04/14/23 Chief Complaint: ESKE Jes HIP Subjective: Improving SHE IS NOT DIZZY OR HAS NO HEADACHES. SHE IS DOING GREAT NO ISSUES. SHE HAS NO ISSUES FOR NOW. STABLE, DOING PT, WALKED AROUND NURSES STATION WITH MINIMAL HELP. Physical Examination - Vital Signs Temperature: 97.4 F Blood Pressure: 148/65 Pulse: 76 Respirations: 17 Pulse Ox (%): 95 - Physical Exam General: Oriented x3, Mild distress HEENT: Atraumatic, PERRLA, EOMI Neck: Supple, JVD not distended Respiratory: Clear to auscultation bilaterally, Normal air movement Cardiovascular: Regular rate/rhythm, Normal S1 S2 Gastrointestinal: Normal bowel sounds, No tenderness Musculoskeletal: No tenderness Integumentary: No rashes Neurological: Normal speech, Normal tone, Normal affect Lymphatics: No axilla or inguinal lymphadenopathy - Studies Laboratory Data (last 24 hrs) 04/14/23 04/14/23 03:26 03:26 WBC 9.00 Hgb 12.4 Hct 35.6 L Plt Count 273 Sodium 138 Potassium 4.0 BUN 28 H Creatinine 1.30 H Glucose 103 Medications List Reviewed: Yes Assessment And Plan - Current Problems (Diagnosis) (1) Hip fracture, left Current Visit: Yes Status: Acute Plan: PT PAIN CONTROL Qualifiers: Encounter type: subsequent encounter (2) Orthostatic hypotension Current Visit: Yes Status: Acute Plan: THIS HAS RESOLVED BEING ON PYRIDOSTIGMINE WILL FU. SHE MAY NOT NEED TO ELEVATE BED AT NIGHT. (3) Supine hypertension Current Visit: Yes Status: Acute
[2023-04-15 03:36] LABS: Hematocrit 34.6 % (36.0-45.0); Lymphocytes % 23.2 % (15.3-44.8); MCV 90.5 fL (80-100); MPV 7.9 fL (7.6-11.3); Platelets 304 thou/uL (152-406); RBC Red Blood Cell Count 3.82 M/uL (3.86-4.86)
[2023-04-15 04:04] LABS: Potassium 4.1 mEq/L (3.5-5.1)
[2023-04-15] MEDS: PYRIDOSTIGMINE 60 MG TABLET PO SCH ×2 (07:57→19:06)
[2023-04-15] MEDS: ASPIRIN EC 81 MG TAB PO SCH (07:57)
[2023-04-15] MEDS: APIXABAN 2.5 MG TABLET PO SCH ×2 (07:57→19:06)
[2023-04-15] MEDS: MAGNESIUM OXIDE 400 MG TAB PO SCH ×2 (07:58→19:06)
[2023-04-15] MEDS: MULTIVITAMIN TAB PO SCH (07:58)
[2023-04-15] MEDS: HYDRALAZINE HCL 25 MG TABLET PO SCH ×3 (07:58→19:06)
[2023-04-15] MEDS: LOSARTAN POTASSIUM 50 MG TABLET PO SCH (07:58)
[2023-04-15] MEDS: OCUVITE (VIT A,C & E/LUTEIN/MINERAL) TABLET PO SCH (07:58)
[2023-04-15] MEDS: METAMUCIL PO SCH (08:00)
[2023-04-15] MEDS: ATORVASTATIN 40 MG TAB PO SCH (19:06)
--- NOTE | 2023-04-15 21:19 | P.PN ---
Subjective Date of Service: 04/15/23 Chief Complaint: BROKE L HIP Subjective: Improving SHE IS NOT DIZZY OR HAS NO HEADACHES. SHE IS DOING GREAT NO ISSUES. SHE HAS NO ISSUES FOR NOW. STABLE, DOING PT, WALKED AROUND NURSES STATION WITH MINIMAL HELP. DC RONAK SHE IS STABLE. Physical Examination - Vital Signs Temperature: 97.8 F Blood Pressure: 148/65 Pulse: 86 Respirations: 17 Pulse Ox (%): 97 - Studies Laboratory Data (last 24 hrs) 04/15/23 04/15/23 03:22 03:22 WBC 8.50 Hgb 12.0 Hct 34.6 L Plt Count 304 Sodium 138 Potassium 4.1 BUN 29 H Creatinine 1.29 H Glucose 102 Medications List Reviewed: Yes Assessment And Plan - Current Problems (Diagnosis) (1) Hip fracture, left Current Visit: Yes Status: Acute Plan: PT PAIN CONTROL Qualifiers: Encounter type: subsequent encounter (2) Orthostatic hypotension Current Visit: Yes Status: Acute Plan: THIS HAS RESOLVED BEING ON PYRIDOSTIGMINE WILL FU. SHE MAY NOT NEED TO ELEVATE BED AT NIGHT. (3) Supine hypertension Current Visit: Yes Status: Acute (4) CKD (chronic kidney disease) stage 2, GFR 60-89 ml/min Current Visit: Yes Status: Acute Plan: CREAT IS ABOUT 1.3 STABLE NOW.
--- NOTE | 2023-04-15 21:28 | PN ---
Date of Progress Note: 04/15/2023 Stai-pr[facility]Uyun Progress Note Visit. Time Of Service: 1:52 p.m. Subjective: Ms. Naylor is doing excellent. She is ready to be discharged in the morning. No compl aints. Review of Systems: No fevers, chills, nausea, vomiting. No myalgias or arthralgias. No significant pain at her left hi p surgical site. Physical Examination: Vital Signs: Blood pressure 144/65, pulse of 72, respiratory rate 16, temperature 97.3, oxygen satur ation 96%. General: Ms. Naylor is lying in bed, happy. HEENT: She is normocephalic, atraumatic. Sclerae anicteric. Oropharynx pink and moist. Neck: Supple. Chest: Clear. Heart: Regular. Extremities: Show no significant edema, cyanosis, or clubbing. Neurological: No focal neurological deficits. Laboratory Studies: White blood cell count 8.5, hemoglobin 12, platelets 304. Sodium 138, potassium 4.1, chloride 106, carbon dioxide 28, BUN 29, creatinine 1.29, glucose 102, calcium 8.7. X-rays/imaging: No new x-rays or imaging. Medications: Her medications have been reviewed and remained unchanged. Current Functional Status: Today, she ambulated 700 feet with a rolling walker and another 200 feet with rolling walker independently. Self propelled wheelchair 200 feet independently. She performed all activities of daily living including transfers, all safely with independence. Progress Towards Rehabilitation Goals: Ms. Naylor is making excellent progress and is at her goals of independence with ambulation 750 feet up and down 10 steps and donning and doffing clothes, perfor terry all activities of daily living with independence. Assessment: Ms. Naylor is an 88-year-old patient in the rehabilitation unit with a left femoral nec k fracture, status post surgical repair. She has done excellent with her physical and occupational t herapy and is ready for discharge in the morning. She has dyslipidemia, hypertension, osteoarthritis , insomnia, and anemia. Plan: Continue until discharge with physical and occupational therapy and continue with all of her c omorbid condition medications which are managed by Dr. Murillo. Comorbidities That Continue To Impact Rehabilitation: At this point no comorbidities are negatively impacting her rehabilitation and she is ready for discharge home in the morning. LB/MODL Voice ID: [id number] Report ID: [id number]
[2023-04-16] MEDS: ALENDRONATE 70 MG TAB PO SCH (06:06)
[2023-04-16 07:33] VITALS: TEMP 96.8
[2023-04-16] MEDS: APIXABAN 2.5 MG TABLET PO SCH (08:14)
[2023-04-16] MEDS: PYRIDOSTIGMINE 60 MG TABLET PO SCH (08:14)
[2023-04-16] MEDS: LOSARTAN POTASSIUM 50 MG TABLET PO SCH (08:14)
[2023-04-16] MEDS: ASPIRIN EC 81 MG TAB PO SCH (08:14)
[2023-04-16] MEDS: MAGNESIUM OXIDE 400 MG TAB PO SCH (08:15)
[2023-04-16] MEDS: METAMUCIL PO SCH (08:15)
[2023-04-16] MEDS: HYDRALAZINE HCL 25 MG TABLET PO SCH (08:15)
[2023-04-16] MEDS: OCUVITE (VIT A,C & E/LUTEIN/MINERAL) TABLET PO SCH (08:16)
[2023-04-16] MEDS: MULTIVITAMIN TAB PO SCH (08:16)
[2023-04-16 13:01] VITALS: BP 138/62
--- NOTE | 2023-04-23 23:38 | DS ---
Date of Discharge: 04/16/2023 Discharge Diagnoses: Left hip fracture, status post surgical repair of unilateral hip fracture; dysl ipidemia; hypertension; leukocytosis; chronic kidney disease. Condition: Good. Allergies: AMLODIPINE, CECLOR, CEFZIL, LISINOPRIL, BYSTOLIC, PENICILLIN. Medications: Ocuvite daily, Ultram 50 mg every 6 hours, Metamucil 1 packet daily, Pravachol 40 mg da micha, multivitamin with folic acid, Centrum 1 daily, Cozaar 50 mg daily, Apresoline 25 mg 3 times tamiko y, estradiol 2 mg every 7th day, Citracal 1 daily, aspirin 81 mg daily, alendronate 70 mg every 7th d ay, Mestinon 30 mg twice daily, magnesium oxide 400 mg twice daily. Followup: With primary care physician, Dr. Murillo. Laboratory Studies: White blood cell count 8.5, hemoglobin 12.0, platelets 304. Sodium 138, potassi um 4.1, chloride 106, carbon dioxide 28, BUN 29, creatinine 1.29, glucose 102, calcium 8.7. Magnesiu m 1.7. Prealbumin 30.6, albumin 2.7. Urinalysis is completely normal. X-ray/imaging: She had abdominal ultrasound on 04/09/2023. The study showed no evidence of hemodyna mically significant stenosis in the bilateral renal arteries. There was mild echogenic kidney repres enting or suggesting an underlying medical renal disease, but mild. The right kidney measured 9.5 x 3.9 x 3.5 cm and the left kidney measured 7.4 x 3.7 x 3.3 cm. The aortic velocity was 49.8 cm/second . Synopsis Of The Events That Led To Admission: Ms. Naylor is an 88-year-old right-handed patient wit h multiple medical problems as noted including hypertension, dyslipidemia, chronic kidney disease, wh o came to [facility] on April 04 after she fell attempting to help her ambulate . She impacted the left lower extremity, developed severe pain in the hip area and unable to bear we ight. At [facility], she was seen and determined to have a fracture in the hip. She was tr ansferred to [facility] for higher level of care where she received open reduct ion and internal fixation of the left hip fracture. She required [place], Tylenol, and morphine for pa in management and her medical conditions of hypertension, dyslipidemia, chronic kidney disease were m anaged by medication adjustment and hydration. She had leukocytosis addressed and managed. Prior to her fall, she was independent, ambulating, and doing very well, but since the fall required moderate to maximal assistance for many activities of daily living, was only able to ambulate around 14 feet. She was put at weightbearing as tolerated following surgery. As a result of her complex postoperat nadia course, which requires medical management of her comorbid conditions and the need for aggressive physical and occupational therapies, she was admitted to the inpatient rehabilitation unit for such t herapy at [facility]. Hospital Course: During hospitalization, she did very well as noted. No ultrasound was done. No is sues there. Her white blood cell count was followed on a daily basis, and she did very well. No humphrey vations there. Hemoglobin and hematocrit remained stable. Her kidney function did show slight fluct uation with creatinine 1.17 on the , went up to 1.3 on the th and then 1.29 on the 14th. Otherw ise, she did very well. She had protein supplementation. Progress Made With Physical And Occupational Therapy: By her hospital discharge, with her physical t herapy, she was able to ambulate 750 feet outdoors on multiple surfaces within functional limitations , did excellent there. She was able to go up and down 15 steps, did excellence. Did a car transfer very well, met all of her short-term and long-term goals. Regarding her occupational therapy, she wa s also doing very well, able to do bathing, upper body dressing, lower body dressing, all with indepe ndence and again was doing very well, met all of her functional goals and was discharged home [facility]. AILYN/JOAN Voice ID: [id number] Report ID: [id number]
== END 2023-04-16 11:00 | disposition home health service (06) | DRG 561 ==
LOC: 5TH 17:40
PROVIDERS: ADMIT Psychiatry & Neurology Neurology with Special Qualifications in Child Neurology; ATTEND Psychiatry & Neurology Neurology with Special Qualifications in Child Neurology
DX: S72.002D Fracture of unspecified part of neck of left femur, subsequent encounter for closed fracture with routine healing (principal); I12.9 Hypertensive chronic kidney disease with stage 1 through stage 4 chronic kidney disease, or unspecified chronic kidney disease; E78.5 Hyperlipidemia, unspecified; G47.00 Insomnia, unspecified; M19.90 Unspecified osteoarthritis, unspecified site; K59.00 Constipation, unspecified; I95.1 Orthostatic hypotension; N18.2 Chronic kidney disease, stage 2 (mild); D64.9 Anemia, unspecified
CPT/HCPCS: 36415; 51702; 71045; 72170; 80048; 80076; 81001; 82040; 82947; 83735; 83880; 84134; 84484; 85025; 85610; 87086; 87088; 87811; 93005; 93975; 97110; 97112; 97116; 97163; 97165; 97530; 97542; 99285; J1650; J2405; J3010; J7030; J7040

== ENCOUNTER → 2023-10-17 | Emergency (ER) | payer OTHER, MEDICARE ==
[~2023-10-17] MED LIST: FENTANYL CITR 100 MCG/2 ML ONE; MORPHINE 2 MG/ML SYR ONE; MORPHINE 4 MG/ML SYR ONE; ONDANSETRON 4 MG/2 ML VIAL ONE
--- NOTE | 2023-10-17 17:59 | RAD REPORT ---
EXAM DESCRIPTION: CT - Head Brain Wo Cont - 10/17/2023 5:46 pm CLINICAL HISTORY: PAIN COMPARISON: No comparisons TECHNIQUE: Noncontrast head CT images were obtained without IV contrast. Multiplanar reformats were generated and reviewed. All CT scans are performed using dose optimization technique as appropriate and may include automated exposure control or mA/KV adjustment according to patient size. FINDINGS: No intracranial hemorrhage, mass, or edema. Midline structures are unremarkable. Moderate diffuse parenchymal volume loss. Acosta-white matter differentiation is preserved, without evidence of acute infarct. No abnormal extra- axial fluid collections. Patchy deep white matter hypodensities, nonspecific, but suggestive of chronic small vessel ischemic changes. Mastoid air cells and visualized portions of the paranasal sinuses are clear. No acute bony findings. IMPRESSION: No evidence of an acute intracranial process. Chronic findings as above.
--- NOTE | 2023-10-17 18:07 | RAD REPORT ---
EXAM DESCRIPTION: CT - Pelvis Wo Cont - 10/17/2023 5:44 pm CLINICAL HISTORY: TRAUMA COMPARISON: Pelvis dated 04/04/2023; Femur Left dated 04/04/2023 TECHNIQUE: Thin cut axial CT imaging of the pelvis was performed without IV contrast. Multiplanar re formats were generated and reviewed. All CT scans are performed using dose optimization technique as appropriate and may include automated exposure control or mA/KV adjustment according to patient size. FINDINGS: Impacted fracture at the base of the right femoral head and proximal neck. No comminuted f ragments. Internally fixated left femoral neck fracture again seen. Mild degenerative changes of the sacroiliac joints and symphysis pubis. Spondylotic changes of the lo wer lumbar spine. No dilated bowel loops or bowel wall thickening. Colonic diverticulosis. No free air, free fluid or inflammatory stranding. No hernia, mass or bulky lymphadenopathy. The urinary bladder is without sign ificant finding. IMPRESSION: Impacted fracture at the base of the right femoral head and proximal neck. Other chronic findings as above.
--- NOTE | 2023-10-17 18:11 | RAD REPORT ---
EXAM DESCRIPTION: RAD - Elbow Right 2 View - 10/17/2023 5:55 pm CLINICAL HISTORY: PAIN COMPARISON: No comparisons TECHNIQUE: Right elbow, 3 views. FINDINGS: No fracture is identified. No elevated posterior fat pad to suggest an effusion. There is no dislocation or periosteal reaction noted. Degenerative changes most pronounced at the uln otrochlear articulation. No foreign body or other soft tissue abnormality. IMPRESSION: No acute osseus abnormality. Degenerative changes as above.
--- NOTE | 2023-10-17 18:33 | ER ---
Nurse's Notes [facility] Name: Sandra Naylor Age: 88 yrs Sex: Female : 1935 Arrival Date: 10/17/2023 Time: 16:52 Bed IW10 Private MD: Diagnosis: Right Hip Fracture Presentation: 10/16 17:05 Chief complaint: EMS states: "Pt tripped fell and landed on her right hip, no LOC". rs5 Care prior to arrival: None. Mechanism of Injury: Fall. 17:05 Acuity: SUSAN 3 rs5 17:05 Method Of Arrival: EMS: [facility] rs5 17:30 Coronavirus screen: At this time, the client does not indicate any symptoms associated rs5 with coronavirus-19. Ebola Screen: No symptoms or risks identified at this time. Initial Sepsis Screen: Does the patient meet any 2 criteria? HR > 90 bpm. Does the patient have a suspected source of infection? No. Patient's initial sepsis screen is negative. Risk Assessment: Do you want to hurt yourself or someone else? Patient reports no desire to harm self or others. Onset of symptoms was October 17, 2023. Historical: - Allergies: 17:06 amlodipine; rs5 17:06 Bystolic; rs5 17:06 Ceclor; rs5 17:06 Cefzil; rs5 17:06 Lisinopril; rs5 17:06 PENICILLINS; rs5 - PMHx: 17:06 Hypercholesterolemia; Hypertensive disorder; kidney disease; transient global amesia rs5 (periodic condition); - PSHx: 17:07 right hip; rs5 - Immunization history: Last tetanus immunization: - up to date. - Social history:: Smoking status: Patient denies any tobacco usage or history of. Screenin:05 [facility] ED Fall Risk Assessment (Adult) History of falling in the last 3 months, rs5 including since admission No falls in past 3 months (0 pts). 17:05 Abuse screen: Denies threats or abuse. Nutritional screening: No deficits noted. rs5 Tuberculosis screening: No symptoms or risk factors identified. Assessment: 17:05 General: Appears in no apparent distress. uncomfortable, Behavior is calm, cooperative. rs5 Pain: Complains of pain in left hip. 19:00 General: Appears in no apparent distress. comfortable, Behavior is calm, cooperative, vc1 appropriate for age. Pain: Denies pain. Complains of pain in pt states no pain since pain medication Noted to be resistant to movement, Also complains of. Neuro: Level of Consciousness is awake, alert, obeys commands, Oriented to person, place, time, situation. Cardiovascular: Heart tones S1 S2 Capillary refill < 3 seconds Patient's skin is warm and dry. Respiratory: Airway is patent Respiratory effort is even, unlabored, Respiratory pattern is regular, symmetrical, Breath sounds are clear bilaterally. GI: No deficits noted. No signs and/or symptoms were reported involving the gastrointestinal system. : No deficits noted. No signs and/or symptoms were reported regarding the genitourinary system. EENT: No deficits noted. No signs and/or symptoms were reported regarding the EENT system. Derm: Wound noted right side of forehead. Musculoskeletal: right leg longer than left. Injury Description: Abrasion sustained to right side of forehead right hip fracture. 20:00 Reassessment: No changes from previously documented assessment. Patient and/or family vc1 updated on plan of care and expected duration. Pain level reassessed. Patient is alert, oriented x 3, equal unlabored respirations, skin warm/dry/pink. 21:00 Reassessment: Patient appears in no apparent distress at this time. No changes from vc1 previously documented assessment. Patient and/or family updated on plan of care and expected duration. Pain level reassessed. Patient is alert, oriented x 3, equal unlabored respirations, skin warm/dry/pink. 22:00 Reassessment: Patient appears in no apparent distress at this time. No changes from vc1 previously documented assessment. Patient and/or family updated on plan of care and expected duration. Pain level reassessed. Patient is alert, oriented x 3, equal unlabored respirations, skin warm/dry/pink. Vital Signs: 17:30 BP 156 / 84; Pulse 110; Resp 18; Pulse Ox 97% on R/A; rs5 19:00 BP 148 / 80; Pulse 99; Resp 17; Pulse Ox 98% ; vc1 21:00 BP 146 / 78; Pulse 97; Resp 17; Pulse Ox 97% ; vc1 22:30 BP 146 / 80; Pulse 98; Resp 16; Temp 98.6; Pulse Ox 99% ; vc1 ED Course: 17:04 Patient arrived in ED. aa5 17:05 Sebastian Michel RN is Primary Nurse. rs5 17:05 Ramesh Chadwick MD is Attending Physician. cp3 17:05 Patient has correct armband on for positive identification. Placed in gown. Bed in low rs5 position. Call light in reach. Side rails up X2. 17:05 No provider procedures requiring assistance completed. rs5 17:06 Triage completed. rs5 17:46 CT Pelvis wo Cont In Process Unspecified. EDMS 17:48 CT Head Brain wo Cont In Process Unspecified. EDMS 17:57 Elbow Right 2 View XRAY In Process Unspecified. EDMS 19:00 Report received from Sebastian Regalado RN. vc1 19:00 Pulse ox on. NIBP on. vc1 19:00 Arm band placed on right wrist. vc1 20:00 Provided Education on: pain management. vc1 20:09 PT-INR Sent. as9 20:09 Basic Metabolic Panel Sent. as9 20:09 CBC w/o diff Sent. as9 20:14 Attending Physician role handed off by Ramesh Chadwick MD ci 20:14 Lucila De Leon is Attending Physician. ci 21:20 INITIATED TRANSFER WITH ELIJAH \\T\\ 1911 WITH [facility]. PT ACCEPTED BY DR Markell MOHAN \\T\\ 2035. PT WILL GO TO ROOM 505. NUMBER FOR NURSE TO NURSE REPORT [phone] [facility] TO TRANSFER PT. 22:44 Patient transferred, IV remains in place. vc1 Administered Medications: 17:17 Drug: morphine IVP or IV 4 mg IVP once over 4 mins Route: IVP; Infused Over: 4 mins; rs5 Site: left antecubital; 22:02 Follow up: Response: No adverse reaction; Marked relief of symptoms; RASS: Alert and as9 Calm (0) 17:17 Drug: Ondansetron IVP 4 mg IVP once; over 2 minutes Route: IVP; Site: left antecubital; rs5 19:30 Follow up: Response: No adverse reaction; Marked relief of symptoms as9 17:39 Not Given (Patient Refused): morphineor iv 2 mg IVP once over 4 mins rs5 22:29 Drug: fentaNYL (PF) IVP 25 mcg IVP once Route: IVP; Site: left antecubital; as9 23:23 Follow up: Response: Medication administered at transfer vc1 Medication: 20:40 VIS not applicable for this client. vc1 Outcome: 18:32 Discharge ordered by MD. cp3 18:33 ER care complete, transfer ordered by . cp3 22:44 Patient left the ED. vc1 22:44 Transferred by ground EMS to [facility] completed. vc1 X-rays sent w/ patient. Note: [facility] 22:44 Condition: stable 22:44 Instructed on the need for transfer, Signatures: Dispatcher [employer] EDMS Ramesh Chadwick MD MD cp3 Rita La, RN RN aa5 Alec Knapp RN RN jb4 Callie Galeano RN RN vc1 Sebastian Michel RN RN rs5 Lucila De Leon Kelsey Maroul [facility] Roberto Nickerson RN RN as9 Corrections: (The following items were deleted from the chart) 17:08 17:05 Chief complaint: EMS states: "Pt tripped fell and landed on her left hip, no LOC" rs5 rs5 23:20 23:03 Patient left the ED. jb4 vc1
--- NOTE | 2023-10-17 18:33 | EDPHYS ---
Physician Documentation [facility] Name: Sandra Naylor Age: 88 yrs Sex: Female : 1935 Arrival Date: 10/17/2023 Time: 16:52 Bed IW10 Private MD: ED Physician Lucila De Leon HPI: 10/16 18:27 This 88 yrs old Female presents to ER via EMS with complaints of Fall Injury. cp3 18:27 the patient is an 88 yo female who presents to the ed secodary to fall from standing. cp3 mechanical fall. + right hip discomfort, right elbow abrasion, and head contusion. Historical: - Allergies: 17:06 amlodipine; rs5 17:06 Bystolic; rs5 17:06 Ceclor; rs5 17:06 Cefzil; rs5 17:06 Lisinopril; rs5 17:06 PENICILLINS; rs5 - PMHx: 17:06 Hypercholesterolemia; Hypertensive disorder; kidney disease; transient global amesia rs5 (periodic condition); - PSHx: 17:07 right hip; rs5 - Immunization history: Last tetanus immunization: - up to date. - Social history:: Smoking status: Patient denies any tobacco usage or history of. ROS: 18:27 Constitutional: Negative for fever, chills, and weight loss, Eyes: Negative for injury, cp3 pain, redness, and discharge, ENT: Negative for injury, pain, and discharge, Neck: Negative for injury, pain, and swelling, Cardiovascular: Negative for chest pain, palpitations, and edema, Respiratory: Negative for shortness of breath, cough, wheezing, and pleuritic chest pain, Abdomen/GI: Negative for abdominal pain, nausea, vomiting, diarrhea, and constipation, Back: Negative for injury and pain, : Negative for injury, bleeding, discharge, and swelling, Skin: Negative for injury, rash, and discoloration, Neuro: Negative for headache, weakness, numbness, tingling, and seizure, Psych: Negative for depression, anxiety, suicide ideation, homicidal ideation, and hallucinations, Allergy/Immunology: Negative for hives, rash, and allergies, Endocrine: Negative for neck swelling, polydipsia, polyuria, polyphagia, and marked weight changes, Hematologic/Lymphatic: Negative for swollen nodes, abnormal bleeding, and unusual bruising, 18:27 MS/extremity: Positive for tenderness, right hip, right elbow, Exam: 18:27 Constitutional: This is a well developed, well nourished patient who is awake, alert, cp3 and in no acute distress. Head/Face: Normocephalic, atraumatic. Eyes: Pupils equal round and reactive to light, extra-ocular motions intact. Lids and lashes normal. Conjunctiva and sclera are non-icteric and not injected. Cornea within normal limits. Periorbital areas with no swelling, redness, or edema. ENT: Nares patent. No nasal discharge, no septal abnormalities noted. Tympanic membranes are normal and external auditory canals are clear. Oropharynx with no redness, swelling, or masses, exudates, or evidence of obstruction, uvula midline. Mucous membranes moist. Neck: Trachea midline, no thyromegaly or masses palpated, and no cervical lymphadenopathy. Supple, full range of motion without nuchal rigidity, or vertebral point tenderness. No Meningismus. Chest/axilla: Normal chest wall appearance and motion. Nontender with no deformity. No lesions are appreciated. Cardiovascular: Regular rate and rhythm with a normal S1 and S2. No gallops, murmurs, or rubs. Normal PMI, no JVD. No pulse deficits. Respiratory: Lungs have equal breath sounds bilaterally, clear to auscultation and percussion. No rales, rhonchi or wheezes noted. No increased work of breathing, no retractions or nasal flaring. Abdomen/GI: Soft, non-tender, with normal bowel sounds. No distension or tympany. No guarding or rebound. No evidence of tenderness throughout. Back: No spinal tenderness. No costovertebral tenderness. Full range of motion. 18:27 MS/ Extremity: Pulses equal, no cyanosis. Neurovascular intact. Full, normal range of motion. Neuro: Awake and alert, GCS 15, oriented to person, place, time, and situation. Cranial nerves II-XII grossly intact. Motor strength 5/5 in all extremities. Sensory grossly intact. Cerebellar exam normal. Normal gait. Psych: Awake, alert, with orientation to person, place and time. Behavior, mood, and affect are within normal limits. 18:27 Musculoskeletal/extremity: right hip mildly shortened, nv intact. contusion to the right elbow. 18:27 Skin: abrasion to the right elbow. Vital Signs: 17:30 BP 156 / 84; Pulse 110; Resp 18; Pulse Ox 97% on R/A; rs5 19:00 BP 148 / 80; Pulse 99; Resp 17; Pulse Ox 98% ; vc1 21:00 BP 146 / 78; Pulse 97; Resp 17; Pulse Ox 97% ; vc1 22:30 BP 146 / 80; Pulse 98; Resp 16; Temp 98.6; Pulse Ox 99% ; vc1 MDM: 17:05 Patient medically screened. cp3 18:27 Differential diagnosis: closed head injury, contusion, fracture. Data reviewed: vital cp3 signs, nurses notes, EMS record, radiologic studies, CT scan, plain films. Consideration of Admission/Observation Patient was admitted/placed on observation. Escalation of care including admission/observation considered. Management of patient was discussed with the following: [facility] - patient preference to transfer. I considered the following discharge prescriptions or medication management in the emergency department Medications were administered in the Emergency Department. See MAR. Independent interpretation of the following test(s) in the Emergency Department CT Scan: My interpretation is right hip ct- fx right hip. 20:42 ED course: No beds available at [facility]. Patient accepted by Dr. Lemus at [facility]. Family okay with transfer to [facility].. 10/16 19:28 Order name: CBC w/o diff; Complete Time: 22:13 cp3 10/16 19:28 Order name: Basic Metabolic Panel; Complete Time: 22:13 cp3 10/16 19:28 Order name: PT-INR; Complete Time: 22:13 cp3 10/16 17:06 Order name: CT Pelvis wo Cont; Complete Time: 18:19 cp3 10/16 17:33 Order name: CT Head Brain wo Cont; Complete Time: 18:19 cp3 10/16 17:33 Order name: Elbow Right 2 View XRAY; Complete Time: 18:19 cp3 Administered Medications: 17:17 Drug: morphine IVP or IV 4 mg IVP once over 4 mins Route: IVP; Infused Over: 4 mins; rs5 Site: left antecubital; 22:02 Follow up: Response: No adverse reaction; Marked relief of symptoms; RASS: Alert and as9 Calm (0) 17:17 Drug: Ondansetron IVP 4 mg IVP once; over 2 minutes Route: IVP; Site: left antecubital; rs5 19:30 Follow up: Response: No adverse reaction; Marked relief of symptoms as9 17:39 Not Given (Patient Refused): morphineor iv 2 mg IVP once over 4 mins rs5 22:29 Drug: fentaNYL (PF) IVP 25 mcg IVP once Route: IVP; Site: left antecubital; as9 23:23 Follow up: Response: Medication administered at transfer vc1 Disposition Summary: 10/17/23 18:33 Transfer Ordered Notes: Reason: Higher level of care cp3 Condition: Stable(10/17/23 18:33) cp3 Problem: new cp3 Symptoms: have improved cp3 Transfer Location: [facility](10/17/23 20:43) ci Accepting Physician: Dr. Lemus(10/17/23 23:03) jb4 Diagnosis - Right Hip Fracture cp3 Forms: - Medication Reconciliation Form cp3 - SBAR form cp3 Signatures: Dispatcher [employer] EDMS Ramesh Chadwick MD MD cp3 Alec Knapp RN RN jb4 Sebastian Michel RN RN rs5 Lucila De Leon Aaron RN RN as9 Callie Galeano RN vc1 Corrections: (The following items were deleted from the chart) 18:32 18:32 Home cp3 cp3 18:32 18:32 Stable cp3 cp3 18:32 18:32 Right hip fracture cp3 cp3 20:43 18:33 pending cp3 ci 20:43 18:33 [facility] cp3 ci 20:44 20:42 ED course: Patient accepted by Dr. Lemus at [facility]. Family ci okay with transfer to [facility].. ci 23:03 20:43 Dr. Lemus ci jb4
[2023-10-17 20:20] LABS: Hematocrit 41.5 % (36.0-45.0); Hemoglobin 13.9 g/dL (12.0-15.0); MCH 29.9 pg (27.0-35.0); MCHC 33.5 g/dL (32.0-36.0); MCV 89.3 fL (80-100); MPV 7.7 fL (7.6-11.3); Platelets 212 thou/uL (152-406); RBC Red Blood Cell Count 4.65 M/uL (3.86-4.86); Red Cell Distribution Width 14.4 % (12.1-15.2)
[2023-10-17 20:29] LABS: PT Prothrombin Time 12.8 SECONDS (9.5-12.5); Protime INR 1.17
[2023-10-17 20:34] LABS: Anion Gap 11.3 mEq/L (5.0-15.0); Potassium 3.3 mEq/L (3.5-5.1)
[2023-10-17 23:38] VITALS: BP 156/84; O2SAT 97
== END ==
LOC: ER 16:52
DX: S72.041A Displaced fracture of base of neck of right femur, initial encounter for closed fracture (principal); S50.311A Abrasion of right elbow, initial encounter; S00.83XA Contusion of other part of head, initial encounter; W18.30XA Fall on same level, unspecified, initial encounter; Z88.0 Allergy status to penicillin; Z88.1 Allergy status to other antibiotic agents; Z88.8 Allergy status to other drugs, medicaments and biological substances
CPT/HCPCS: 80048; 36415; 85610; 85027; 70450; 72192; 73070; 96375; 96374; 99285; J3010; J2405; J2270

== ENCOUNTER 2023-10-20 14:50 | Inpatient (IN) | payer OTHER, MEDICARE ==
[2023-10-20] MEDS ORDERED: ACETAMINOPHEN 500 MG TAB PO PRN (21:39)
[2023-10-20] MEDS ORDERED: HYDROCODONE/APAP 5/325 MG TAB PO PRN (21:45)
[2023-10-20 21:47] VITALS: BMI 26.4
[2023-10-20 22:29] LABS: Specific Gravity 1.014 (1.005-1.030); Sqamous Epithelial <5 /HPF (None Seen); Urine Bacteria None Seen /HPF (<20); Urine Bilirubin NEGATIVE (Negative); Urine Blood Negative (Negative); Urine Clarity Turbid (Clear); Urine Color Light-Yellow (Yellow); Urine Culture Reflex Order REFLEXED; Urine Glucose NEGATIVE (Negative); Urine Ketones NEGATIVE (Negative); Urine Micro Reflex YN NO BILL MICROSCOPIC; Urine Mucus Slight /HPF (None Seen); Urine Nitrite NEGATIVE (Negative); Urine Protein NEGATIVE (Negative); Urine RBC <5 /HPF (None Seen); Urine Urobilinogen Normal (Normal)
[2023-10-20] MEDS: AMITRIPTYLINE 10 MG TAB PO SCH (22:50)
[2023-10-20] MEDS: ATORVASTATIN 10 MG TAB PO SCH (22:51)
[2023-10-20] MEDS: DOCUSATE NA/SENNA CONC 1 TAB PO SCH (22:51)
[2023-10-20] MEDS ORDERED: MELATONIN 3 MG TABLET PO PRN (23:30)
[2023-10-20] MEDS: cloNIDine HCL 0.1 MG TAB PO PRN (23:54)
[2023-10-20] MEDS ORDERED: cloNIDine HCL 0.1 MG TAB ONE (23:54)
[2023-10-21 04:32] LABS: Absolute Basophils 0.1 K/uL (0-0.5); Absolute Eosinophils 0.7 K/uL (0-0.5); Absolute Lymphocytes (CBC) 1.4 K/uL (0.7-4.9); Absolute Monocytes 1.4 K/uL (0.1-1.3); Absolute Neutrophil 5.2 K/uL (1.8-8.0); Basophils % 0.8 % (0-1.3); Eosinophils % 8.4 % (0-4.4); Hematocrit 39.4 % (36.0-45.0); Hemoglobin 13.3 g/dL (12.0-15.0); Lymphocytes % 16.2 % (15.3-44.8); MCH 30.1 pg (27.0-35.0); MCHC 33.9 g/dL (32.0-36.0); MCV 88.8 fL (80-100); MPV 7.8 fL (7.6-11.3); Monocytes % 15.4 % (3.3-12.3); Neutrophils % 59.2 % (41.7-73.7); Nucleated Red Blood Cells % 0.2 % (0-0); Platelets 249 thou/uL (152-406); RBC Red Blood Cell Count 4.44 M/uL (3.86-4.86); Red Cell Distribution Width 14.2 % (12.1-15.2)
[2023-10-21 04:53] LABS: Anion Gap 6.6 mEq/L (5.0-15.0); Magnesium 1.9 mg/dL (1.6-2.4); Potassium 3.6 mEq/L (3.5-5.1); Prealbumin 14.1 mg/dL (20-40)
[2023-10-21] MEDS: ENOXAPARIN 30 MG/0.3 ML SQ SCH (07:59)
[2023-10-21] MEDS: MAGNESIUM OXIDE 400 MG TAB PO SCH ×2 (07:59→20:22)
[2023-10-21] MEDS: INFLUENZA VACCINE (for 6+ mo) 0.5 ML DOSE IMVAC ONE (08:00)
[2023-10-21] MEDS: LOSARTAN POTASSIUM 50 MG TABLET PO SCH (08:00)
[2023-10-21] MEDS: CALCIUM CARBONATE 500 MG TAB FT SCH (08:00)
[2023-10-21] MEDS: OCUVITE (VIT A,C & E/LUTEIN/MINERAL) TABLET PO SCH (08:00)
[2023-10-21] MEDS: hydroCHLOROthiazide 25 MG TAB PO SCH (08:01)
[2023-10-21] MEDS: ASPIRIN EC 81 MG TAB PO SCH (08:01)
--- NOTE | 2023-10-21 13:20 | P.HP ---
Certification for Inpatient Patient admitted to: Inpatient With expected LOS: >2 Midnights Patient will require the following post-hospital care: Rehabilitation Practitioner: I am a practitioner with admitting privileges, knowledge of patient current condition, hospital course, and medical plan of care. Services: Services provided to patient in accordance with Admission requirements found in Title 42 Section 412.3 of the Code of Federal Regulations Patient History Date of Service: 10/21/23 Reason for admission: sp fall at home. Right hip impcacted fracture History of Present Illness: Sandra came from [place] after Hip fracture surgery r side. She is stable and has no chest pain. She is reasonably healthy with DJD and osteoporosis. Allergies amlodipine Allergy (Verified 04/07/23 18:49) Nausea/Vomiting cefaclor [From Ceclor] Allergy (Verified 04/07/23 18:49) Itching cefprozil [From Cefzil] Allergy (Verified 04/07/23 18:49) Itching lisinopril Allergy (Verified 04/07/23 18:49) Nausea/Vomiting nebivolol [From Bystolic] Allergy (Verified 04/07/23 18:49) Nausea/Vomiting Penicillins Allergy (Verified 04/07/23 18:49) Itching Home medications list reviewed: Yes Home Medications: Alendronate Sodium 70 mg PO EVERY 7TH DAY 04/07/23 Aspirin [Aspirin EC 81 MG] 81 mg PO DAILY 04/07/23 Ca Citrate/Mgox/Vit D3/B6/Min [Citracal Plus Tablet] 1 each PO DAILY 04/07/23 Estradiol [Estrace] 2 mg PO EVERY 7TH DAY 04/07/23 Losartan Potassium [Cozaar*] 50 mg PO DAILY 04/07/23 Multivitamin/Iron/Folic Acid [Centrum Adults Tablet] 1 each PO DAILY 04/07/23 Pravastatin [Pravachol*] 40 mg PO BEDTIME 04/07/23 Vit A,C & E/Lutein/Minerals [Ocuvite Tablet] 1 tab PO DAILY 04/07/23 Magnesium Oxide [Mag 0X*] 400 mg PO BID tab 04/15/23 Amitriptyline [Elavil] 10 mg PO BEDTIME 10/20/23 Calcium Citrate 200 mg PO DAILY 10/20/23 Colesevelan 625 mg PO BID 10/20/23 Enoxaparin Sodium [Lovenox 30 MG INJ] 30 mg SQ DAILY 10/20/23 Hydrocodone 5/APAP 325 [Mitchell 5/325] 1 tab PO Q4H PRN 10/20/23 Sennosides/Docusate Sodium [Senna-S 8.6-50 mg Tablet] 1 each PO BEDTIME 10/20/23 hydroCHLOROthiazide [Hydrochlorothiazide] 12.5 mg PO DAILY 10/20/23 - Past Medical/Surgical History Has patient received pneumonia vaccine in the past: Yes Diabetic: No -: htn -: hld -: ckd -: lt hip replace 04/05/23 - Social History Smoking Status: Never smoker Alcohol use: No CD- Drugs: No Caffeine use: Yes Place of Residence: [place] Review of Systems 10-point ROS is otherwise unremarkable General: Weakness Physical Examination - Vital Signs Temperature: 96.9 F Blood Pressure: 133/65 Pulse: 87 Respirations: 16 Pulse Ox (%): 93 - Physical Exam General: Oriented x3, Mild distress HEENT: Atraumatic, PERRLA, Mucous membr. moist/pink, EOMI, Sclerae nonicteric Neck: Supple, 2+ carotid pulse no bruit, No LAD, Without JVD or thyroid abnormality Respiratory: Clear to auscultation bilaterally, Normal air movement Cardiovascular: Regular rate/rhythm, Normal S1 S2 Gastrointestinal: Normal bowel sounds, No tenderness Musculoskeletal: No tenderness Integumentary: No rashes Neurological: Normal gait, Normal speech, Normal strength at 5/5 x4 extr, Normal tone, Normal affect Lymphatics: No axilla or inguinal lymphadenopathy - Studies Laboratory Data (last 24 hrs) 10/21/23 10/21/23 04:00 04:00 WBC 8.80 Hgb 13.3 Hct 39.4 Plt Count 249 Sodium 141 Potassium 3.6 BUN 23 H Creatinine 1.24 H Glucose 106 Magnesium 1.9 Assessment and Plan - Problems (Diagnosis) (1) Closed right hip fracture Current Visit: Yes Status: Acute Plan: She has been to [place]. I don't have details of what was done in [place]. No one called me. I will talk to Dr. Zhang and review records. Cont pain control Tramadol stop Hydrocodon. Pt consult. (2) CKD (chronic kidney disease) stage 2, GFR 60-89 ml/min Current Visit: No Status: Acute - Advance Directives Does patient have a Living Will: Yes Does patient have a Durable POA for Healthcare: No
[2023-10-21] MEDS: COLESEVELAM 625 MG PO SCH (20:00)
[2023-10-21] MEDS: AMITRIPTYLINE 10 MG TAB PO SCH (20:22)
[2023-10-21] MEDS ORDERED: DOCUSATE NA/SENNA CONC 1 TAB PO SCH (21:00)
[2023-10-21] MEDS ORDERED: HOME MED 1 EA UNK (Pravastatin [Pravachol*] 40 MG/TAB Tab) PO SCH (21:00)
[2023-10-21] MEDS ORDERED: ATORVASTATIN 10 MG TAB PO SCH (21:00)
--- NOTE | 2023-10-21 22:45 | HP ---
Date of Admission: 10/20/2023 Time Of Service: 1 p.m. Chief Complaint: "I fell and broke my right hip." History Of Present Illness: Ms. Naylor is an 88-year-old patient with hypertension, dyslipidemia, l eft femoral neck fracture, status post open reduction and internal fixation in April 2003, who vergara d another fall recently at her independent living facility, [facility]. She had severe pain on the right, had difficulty bearing weight, and was transferred to [facility]. She was evaluated by the Orthopedic Service after imaging showed impacted subcapital femoral neck fracture o n the right without significant displacement. In preparation for possible surgery, Cardiology was co nsulted and risk stratification performed. Orthopedic evaluation recommended physical therapy and re peat CT scan after speaking with the patient. Eventually, they determined that the patient may heal by secondary intention without surgical intervention. Therapy found she required moderate assistance for grooming, lower body dressing, toileting, transferring, and ambulating 100 feet with a rolling w alker with moderate assistance. She was put at partial weightbearing on the right lower extremity. She has pain management with multiple modalities. She has medications to address her hypertension an d dyslipidemia and she has amitriptyline for depression. She is functioning well below her baseline level of functioning given her recent fracture and she has our comorbidities which are noted and ther efbrian would benefit from aggressive inpatient rehabilitation for physical and occupational therapy an d if need be speech therapy along with 24 hours, 7 days a week fdc, daily physician evalu ation, Apple Peeler Operator evaluation and management for her to be able to return to the [facility]. Past Medical History: As noted including chronic kidney disease, dyslipidemia, hypertension, transie nt global amnesia, ankle surgery, open reduction and internal fixation of the left femoral neck fract ure on April 05, 2023. Allergies: AMLODIPINE, CEFACLOR, CEFPROZIL, LISINOPRIL, NEBIVOLOL, AND PENICILLINS. Medications: Tylenol 500 mg every 4 hours as needed, Fosamax 70 mg every seventh day, Elavil 10 mg a t bedtime, aspirin 81 mg daily, Lipitor 10 mg at bedtime, Os-Obie 500 mg daily, clonidine 0.1 mg for s ystolic blood pressure greater than 170, Lovenox 30 mg subcutaneously daily, hydrochlorothiazide 12.5 mg daily, Cozaar 50 mg daily, magnesium oxide 400 mg twice daily, melatonin 3 mg at bedtime, Ocuvite 1 tablet daily. Family History: Noncontributory. Laboratory Studies: White blood cell count 8.8, hemoglobin 13.3, platelets 249. Sodium 141, potassi um 3.6, chloride 107, carbon dioxide 23, BUN 1.24, prealbumin 14.1, albumin 3.0, magnesium 1.9, calci um 9.0, glucose 106. Urinalysis, turbid clarity, 250 esterase, 10 to 20 white blood cells, otherwise normal. Review of Systems: Ms. Naylor says she is doing well. Denies any significant pain. She is in bed. She did ambulate a round the unit. She denies any recent fevers or chills. Some myalgias and arthralgias as noted. No rash. No psychiatric issues. No active gastrointestinal or genitourinary issues and no dermatologi obie issues. No other positives on the systems review. Current Level Of Functioning: Setup assistance for eating, moderate assistance for oral hygiene, max leting, showering, all moderate assistance, contact guard assistance for upper body dressing, moderat e assistance for lower body dressing and donning and doffing footwear. Supervision for rolling right -to-left and jlex-ea-bftls, contact guard assistance for using a sliding board and for aab-oh-zmwlh m oderate assistance, transferring bed to chair to toilet moderate assistance, ambulating with a nilam g walker 100 feet moderate assistance, wheelchair mobilization 200 feet with moderate assistance. Physical Examination: Vital Signs: Blood pressure 133/65, pulse 87, respiratory rate 16, temperature 97.3, oxygen saturati on 93%. Weight 140 pounds. Height 5 feet 1 inch. BMI 26.5. General: Ms. Naylor is resting comfortably. She is in bed. She is in no acute distress. She does say she is somewhat sleepy as she has done a lot of therapy. HEENT: Otherwise, normocephalic, atraumatic. Sclerae anicteric. Oropharynx pink and moist. Neck: Supple. Chest: Clear. Extremities: The right hip fracture site has no significant obvious areas of abnormality. Bruising is noted. No significant edema in the extremities. Abdomen: Soft. Rehabilitation And Medical Assessment And Plan: Ms. Naylor is admitted to the rehabilitation unit w ith impairment category is 09, orthopedic, lower extremity fracture. Her impairment group code is 08 .11, status post unilateral hip fracture. Etiologic diagnosis, impacted fracture of the right femora l head and proximal neck. Her comorbidities are decreased mobility, decreased physical functioning, depression, dyslipidemia, hypertension, osteopenia, dyslipidemia, moderate malnutrition, elevated red blood cells. Plan: 1.She will have physical and occupational and if need be speech therapy for 3.5 hours, 5 of 7 days. 2.For pain management if need be, we will add gabapentin to her current regimen of Elavil, Tylenol, and other modalities include muscle relaxants as needed. Currently, she said the pain is really arou nd 0. Continue with Lipitor for dyslipidemia, clonidine as needed for elevated blood pressure greate r than 170, Lovenox for DVT prophylaxis, Cozaar scheduled for blood pressures, magnesium oxide for mu scle spasm, melatonin for insomnia, and continue Ocuvite. Comorbidities That Are Impacting Rehabilitation: She did have the prior right femoral neck fracture, but she is recovered very well from that. She does have mild pain, not much of a limiting factor. Currently, her hypertension is controlled at this point, but will be observed closely. She has of co urse a risk of deep vein thrombosis and she is on Lovenox for DVT prophylaxis and addressing issues o f sleep and bowel movements will also be ongoing basis. Rehab Specific Plan: Ms. Naylor will have physical, occupational, and if need be speech therapy for 3.5 hours, 5 of 7 days to improve her ability to transfer from bed to chair, to toilet to shower, to perform a shower and toileting, to dress upper and lower body, donning and doffing shoes, and to amb ulate at least a minimum of 250 feet with modified independence, propel a wheelchair 250 feet with mo dified independence, up and down 10 steps with modified independence. Ms. Naylor has a good understanding of the process of admission to the inpatient rehabilitation faci lity and how she will benefit from physical, occupational, and if need be speech therapy. Depending on how she is doing, additional help from the services including Orthopedic Service, Infectious Disea se Service, and Hospitalist Service may be consulted. Given her complex medical condition and risk o f further complications, rehabilitation cannot be safely or affectively performed at a lower level fa cility such as fdc. Barriers To Discharge: At this point, she is going back to an independent living facility. Dependin g on how well she does, she may have to go to the assisted living facility or to fdc, but that will be determined as she does her therapy and how well she does. Length Of Stay: About 12 days. Disposition: Back to independent living with continued physical therapy via Home Health. Prognosis: Good. Rehabilitation Specific Goals: 1.Become independent with upper and lower body dressing, donning and doffing of shoes, showering, to ileting. 2.Independently ambulate 250 feet with a rolling walker. 3.Independently propel a wheelchair 250 feet. 4.Independently go up and down 15 steps with bilateral handrails. 5.Independently perform all cognitive functioning including medication management, physician schedul ed followups including with Orthopedic Surgery. The above goals were reviewed with Ms. Naylor and she is in agreement. By signing this document, I acknowledge I have personally performed a full physical examination on Ms Mike Naylor no later than 24 hours after her admission to the inpatient rehabilitation facility and det ermine that she is able to tolerate the above course of treatment at an intensive level for a reasona ble period of time. A detailed individualized plan of care for her will be completed by hospital day 4 based on the preadmission screen, history and physical, and therapy evaluations. AILYN/JOAN Voice ID: [id number]
[2023-10-22] MEDS ORDERED: ALENDRONATE 70 MG TAB PO SCH (06:00)
[2023-10-22] MEDS: ALENDRONATE 70 MG TAB PO SCH (07:45)
[2023-10-22] MEDS: ENOXAPARIN 30 MG/0.3 ML SQ SCH (07:54)
[2023-10-22] MEDS: ASPIRIN EC 81 MG TAB PO SCH (07:54)
[2023-10-22] MEDS: CALCIUM CARBONATE 500 MG TAB PO SCH (07:54)
[2023-10-22] MEDS: LOSARTAN POTASSIUM 50 MG TABLET PO SCH (07:57)
[2023-10-22] MEDS ORDERED: HOME MED 1 EA UNK (Hydrochlorothiazide [Hydrochlorothiazide] 12.5 MG Tablet) PO SCH (08:00)
[2023-10-22] MEDS ORDERED: HOME MED 1 EA UNK (Multivitamin/Iron/Folic Acid [Centrum Adults Tablet] Tablet) PO SCH (08:00)
--- NOTE | 2023-10-22 13:56 | P.RH.PN ---
Estimated Length of Stay: 10 Expected Discharge Date: 10/28/23 Discharge Disposition Plan: Home Family Support: Yes [facility] Goal: Mobility, Transfers, Self Care Vital Signs: Last Vital Signs Temp 97.1 F 10/22/23 08:00 Pulse 86 10/22/23 08:00 Resp 14 10/22/23 08:00 BP 146/65 H 10/22/23 08:00 Pulse Ox 95 10/22/23 08:00 Laboratory: Laboratory Last Values WBC 8.80 thou/uL (4.3-10.9) 10/21/23 04:00 RBC 4.44 M/uL (3.86-4.86) 10/21/23 04:00 Hgb 13.3 g/dL (12.0-15.0) 10/21/23 04:00 Hct 39.4 % (36.0-45.0) 10/21/23 04:00 MCV 88.8 fL (80-100) 10/21/23 04:00 MCH 30.1 pg (27.0-35.0) 10/21/23 04:00 MCHC 33.9 g/dL (32.0-36.0) 10/21/23 04:00 RDW 14.2 % (12.1-15.2) 10/21/23 04:00 Plt Count 249 thou/uL (152-406) 10/21/23 04:00 MPV 7.8 fL (7.6-11.3) 10/21/23 04:00 Neutrophils % 59.2 % (41.7-73.7) 10/21/23 04:00 Lymphocytes % 16.2 % (15.3-44.8) 10/21/23 04:00 Monocytes % 15.4 % (3.3-12.3) H 10/21/23 04:00 Eosinophils % 8.4 % (0-4.4) H 10/21/23 04:00 Basophils % 0.8 % (0-1.3) 10/21/23 04:00 Absolute Neutrophils 5.2 K/uL (1.8-8.0) 10/21/23 04:00 Absolute Lymphocytes 1.4 K/uL (0.7-4.9) 10/21/23 04:00 Absolute Monocytes 1.4 K/uL (0.1-1.3) H 10/21/23 04:00 Absolute Eosinophils 0.7 K/uL (0-0.5) H 10/21/23 04:00 Absolute Basophils 0.1 K/uL (0-0.5) 10/21/23 04:00 Sodium 141 mEq/L (136-145) 10/21/23 04:00 Potassium 3.6 mEq/L (3.5-5.1) 10/21/23 04:00 Chloride 107 mEq/L (98-107) 10/21/23 04:00 Carbon Dioxide 31 mEq/L (21-32) 10/21/23 04:00 Anion Gap 6.6 mEq/L (5.0-15.0) 10/21/23 04:00 BUN 23 mg/dL (7-18) H 10/21/23 04:00 Creatinine 1.24 mg/dL (0.55-1.02) H 10/21/23 04:00 Est GFR (CKD-EPI) 42 ml/min (=/>90) L 10/21/23 04:00 Glucose 106 mg/dL (74-106) 10/21/23 04:00 Calcium 9.0 mg/dL (8.5-10.1) 10/21/23 04:00 Magnesium 1.9 mg/dL (1.6-2.4) 10/21/23 04:00 Albumin 3.0 g/dL (3.4-5.0) L 10/21/23 04:00 Prealbumin 14.1 mg/dL (20-40) L 10/21/23 04:00 Urine Color Light-yellow (Yellow) 10/20/23 21:07 Urine Clarity Turbid (Clear) H 10/20/23 21:07 Urine pH 7.0 (5.0-7.0) 10/20/23 21:07 Ur Specific [place] 1.014 (1.005-1.030) 10/20/23 21:07 Glucose (UA)(Auto) Negative (Negative) 10/20/23 21:07 Urine Ketones Negative (Negative) 10/20/23 21:07 Urine Blood Negative (Negative) 10/20/23 21:07 Urine Nitrite Negative (Negative) 10/20/23 21:07 Urine Bilirubin Negative (Negative) 10/20/23 21:07 Urine Urobilinogen Normal (Normal) 10/20/23 21:07 Ur Leukocyte Esterase 250 [place]/uL (Negative) H 10/20/23 21:07 Urine RBC <5 /HPF (None Seen) 10/20/23 21:07 Urine WBC 10-20 /HPF (<5) H 10/20/23 21:07 Ur Squamous Epith Cells <5 /HPF (None Seen) 10/20/23 21:07 U Non-Squamous Epi Cells <5 /HPF (None Seen) 10/20/23 21:07 Urine Bacteria None seen /HPF (<20) 10/20/23 21:07 Urine Mucus Slight /HPF (None Seen) 10/20/23 21:07 Urine Culture Reflexed Reflexed 10/20/23 21:07 Urine Total Protein Negative (Negative) 10/20/23 21:07 Weight: 140 lb Wound Present: No Closed Surgical Incision Present: No Negative Pressure Wound Therapy Present: No Physician Update: Labs reviewed. Moderate malnutrition. BIMS 15, no significant memory loss. Difficulty with 50% weight on right leg. Min assist with walking 5' with partial weight bearing, transfers at min assistance. Self-care is doing well. Summary: Patient's care plan and superintendent container terminal goals have been reviewed and revised as necessary. Please see the Rehabilitation Signature page for all necessary signatures.
[2023-10-22] MEDS: ENSURE ENLIVE 237 ML CAN PO SCH (19:46)
[2023-10-23] MEDS: APIXABAN 2.5 MG TABLET PO SCH (08:37)
[2023-10-25] MEDS: CITRACAL PO SCH (07:27)
--- NOTE | 2023-10-25 17:17 | RAD REPORT ---
EXAM DESCRIPTION: CT - Pelvis Wo Cont - 10/25/2023 4:46 pm CLINICAL HISTORY: Pelvic pain status post fall COMPARISON: October 17, 2023 TECHNIQUE: Computed axial tomography of the pelvis was obtained. Coronal and sagittal reconstruction performed All CT scans are performed using dose optimization technique as appropriate and may include automated exposure control or mA/KV adjustment according to patient size. FINDINGS: Mildly displaced impacted subcapital fracture right femur unchanged from prior exam No dislocation No significant joint effusion No significant muscular hematoma seen IMPRESSION: Subacute mildly displaced impacted subcapital fracture right femur unchanged from October 17, 2023
--- NOTE | 2023-10-25 17:50 | P.PN ---
Subjective Date of Service: 10/25/23 Chief Complaint: sp fall at home. Right hip impcacted fracture Subjective: Improving SHE NEVER HAD SURGERY PER DR. BREWSTER. MILDLY IMPACTED HIP FRACTURE. SHE IS DOING PT DAILY. Review of Systems 10-point ROS is otherwise unremarkable General: Weakness Physical Examination - Vital Signs Temperature: 96.8 F Blood Pressure: 135/64 Pulse: 84 Respirations: 17 Pulse Ox (%): 95 - Physical Exam General: Acute distress HEENT: Atraumatic, PERRLA, EOMI Neck: Supple, JVD not distended Respiratory: Clear to auscultation bilaterally, Normal air movement Cardiovascular: Regular rate/rhythm, Normal S1 S2 Gastrointestinal: Normal bowel sounds, No tenderness Musculoskeletal: No tenderness Integumentary: No rashes Neurological: Normal speech, Normal tone, Normal affect Lymphatics: No axilla or inguinal lymphadenopathy - Studies Medications List Reviewed: Yes Assessment And Plan - Current Problems (Diagnosis) (1) Closed right hip fracture Current Visit: Yes Status: Acute Plan: She has been to [place]. I don't have details of what was done in [place]. No one called me. I will talk to Dr. Brewster and review records. Cont pain control Tramadol stop Hydrocodon. Pt consult. NO SURGERY WAS PERFORMED. STABLE AND DOING PT. (2) CKD (chronic kidney disease) stage 2, GFR 60-89 ml/min Current Visit: No Status: Acute
--- NOTE | 2023-10-25 22:45 | PN ---
Date of Progress Note: 10/25/2023 Time Of Service: 1 a.m. Subjective: Ms. Naylor is resting comfortably in between therapy sessions. Denies any significant issues such as severe pain. Pain is managed. There are mild myalgias, arthralgias. Otherwise, she has no other subjective complaints, says the food is okay. Review of Systems: No fevers, chills. No significant nausea or vomiting. Aside from issues of the right hip fracture s ite, no aggressive myalgias or arthralgias. Physical Examination: Vital Signs: Blood pressure 135/64, pulse 84, respiratory rate 16, temperature 97.3, oxygen saturati on 95%, weight 138 pounds, height 5 feet 1 inch, BMI 26.1. General: Ms. Naylor is resting comfortably. She is in no acute distress. HEENT: She is normocephalic, atraumatic. Sclerae are anicteric. Oropharynx moist. Neck: Supple. Chest: Clear. Extremities: No significant edema in the lower extremities and good symmetric movement in the upper and lower extremities. Laboratory Studies: White blood cell count 8.8, hemoglobin 13.3, platelets 249. Sodium 141, potassi um 3.6, chloride 107, carbon dioxide 31, BUN 23, creatinine 1.24, prealbumin 14.1, albumin 3.0, magne sium 1.9, calcium 9.0, glucose 106. X-ray Imaging: She did have a pelvic CT scan done. The study ordered by Dr. Murillo. This study show ed subacute, mildly displaced, impacted subcapital fracture in the right femur; unchanged from October 17, 2003. Again, the area is healing by secondary intention. No surgical procedure was performed. Medications: Tylenol 500 mg every 4 hours as needed, Fosamax 70 mg every seventh day, Elavil 10 mg a t bedtime, Eliquis 2.5 mg twice daily, aspirin 81 mg daily, Lipitor 10 mg at bedtime, Os-Khadar 500 mg d aily, clonidine 0.1 mg for systolic blood pressure greater than 170, HydroDIURIL 12.5 mg daily, Cozaa r 50 mg daily, magnesium oxide 400 mg twice daily, melatonin 3 mg at bedtime, Ocuvite 1 tablet daily, Ensure Enlive 237 mL twice daily. Progress Made With Physical And Occupational Therapy: Today, with physical therapy, she was able to perform hbmhae-oo-kau transfers independently, multiple transfers done independently, stand pivot tra nsfers independently. She ambulated 250 feet, 85 feet, and 350 feet with standby assistance using ve rbal cues and a rolling walker. Wheelchair mobility also done with over 250 feet independently. Wit h occupational therapy, she completed showering with standby assistance, minimal assistance for upper body dressing. She had good understanding of her safety techniques. Ms. Naylor is making great progress in physical therapy and occupational therapy, although she is on ly now 5 days in. Pain is well managed. She does have 50% weightbearing on the right lower extremit y and is able to maintain that as she does her therapy sessions. Assessment: Ms. Naylor is an 88-year-old patient in rehabilitation with an impacted right femoral n mary kate fracture that did not require surgery and is healing by secondary intention. She does have decre ased functioning, decreased mobility, and decreased physical functioning. Depression, dyslipidemia, hypertension, osteopenia, dyslipidemia, moderate malnutrition. Plan: 1.Continue with physical and occupational therapy for 3 hours a day, 5 of 7 days. 2.She does have multiple medications as listed that will be continued to address her comorbid condit ions including for DVT prophylaxis, for hypertension, for muscle spasms more, difficulty with sleep a t night, for dyslipidemia, and as-needed antihypertensive clonidine. Comorbidities That Continue To Impact Rehabilitation: The femoral neck fracture which is not surgica lly addressed is managed well in terms of pain, does limit her somewhat because she has a 50% weightbearing status, but she is managing that well. Otherwise, no other comorbidities are impacting her negatively. LB/MODL Voice ID: [id number] Report ID: [id number]
[2023-10-26] MEDS: LIDOCAINE 4% PATCH TOP SCH (14:06)
--- NOTE | 2023-10-26 22:01 | P.PN ---
Subjective Date of Service: 10/26/23 Chief Complaint: sp fall at home. Right hip impcacted fracture Subjective: Improving SHE NEVER HAD SURGERY PER DR. BREWSTER. MILDLY IMPACTED HIP FRACTURE. SHE IS DOING PT DAILY. CONT PT PAIN IS CONTROLLED. Physical Examination - Vital Signs Temperature: 97.6 F Blood Pressure: 138/61 Pulse: 84 Respirations: 15 Pulse Ox (%): 98 - Studies Medications List Reviewed: Yes Assessment And Plan - Current Problems (Diagnosis) (1) Closed right hip fracture Current Visit: Yes Status: Acute Plan: She has been to [place]. I don't have details of what was done in [place]. No one called me. I will talk to Dr. Brewster and review records. Cont pain control Tramadol stop Hydrocodon. Pt consult. NO SURGERY WAS PERFORMED. STABLE AND DOING PT. (2) CKD (chronic kidney disease) stage 2, GFR 60-89 ml/min Current Visit: No Status: Acute
--- NOTE | 2023-10-27 02:42 | PN ---
Date of Progress Note: 10/26/2023 Time Of Service: 1:10 p.m. Subjective: Ms. Naylor is doing well. In the gym, doing therapy. Denies any significant pain desp ite the impacted fracture in the right hip. Review of Systems: Mild pain on the right side. No significant myalgias, arthralgias. No nausea. No vomiting. No oth er complaints. Physical Examination: Vital Signs: Blood pressure 122/64. Pulse did go to 111 at max, around 83 at baseline. Temperature 97. Oxygen saturation 94%. Respiratory rate 16. General: Ms. Naylor is resting well as noted, no significant distress. HEENT: She is normocephalic, atraumatic. Sclerae anicteric. Oropharynx moist. Neck: Supple. Chest: Clear. Extremities: Showed no significant cyanosis. Has mild change noted in right lower extremity in term s of edema. She has good hemostasis. Laboratory Studies: No new laboratory studies. X-ray/imaging: No new x-rays or imaging. Medications: Medications have been reviewed and remained unchanged. Progress Made With Physical And Occupational Therapy: Today, with physical therapy, ambulated 350 fe et twice with standby assistance using a rolling walker and verbal cues. She was able to ascend and descend 5 steps with bilateral handrails with minimum assistance. Mobilized with wheelchair 300 feet with independence. With occupational therapy, did bilateral upper extremity exercises with red Ther a-Band and did well. She did use 2-pound weights, and there was some right upper extremity pain when she tried 3-pound weights. Later on in the day, she ambulated 250 feet with supervision to modified independence with a rolling walker. Ms. Naylor is making excellent progress with her physical and occupational therapy and is not being limited by the impacted right femoral neck fracture. Assessment: Ms. Naylor is an 88-year-old patient in rehabilitation unit with impacted right femoral neck fracture, which did not require surgery and is healing by secondary intention. She still has s ome decreased physical function and decreased mobility, depression, dyslipidemia, hypertension, and m oderate malnutrition. Plan: 1.Continue with physical and occupational therapy for 3 hours a day, 5/7 days. 2.She has multiple comorbid conditions that are continuing to be managed by Dr. Aquino, her primary car e physician, and she has pain well addressed. She is sleeping well. No other complaints. She is ma intaining her 50% weightbearing status with the right lower extremity. Comorbidities That Are Impacting The Rehabilitation: Comorbidities are stable and are not negatively impacting her rehabilitation. LB/MODL Voice ID: [id number] Report ID: [id number]
--- NOTE | 2023-10-27 21:52 | P.PN ---
Subjective Date of Service: 10/27/23 Chief Complaint: sp fall at home. Right hip impcacted fracture Subjective: Improving SHE NEVER HAD SURGERY PER DR. BREWSTER. MILDLY IMPACTED HIP FRACTURE. SHE IS DOING PT DAILY. CONT PT PAIN IS CONTROLLED. STABLE DOING PT NO NEW ISSUES. Physical Examination - Vital Signs Temperature: 96.8 F Blood Pressure: 140/65 Pulse: 91 Respirations: 16 Pulse Ox (%): 96 - Studies Medications List Reviewed: Yes Assessment And Plan - Current Problems (Diagnosis) (1) Closed right hip fracture Current Visit: Yes Status: Acute Plan: She has been to [place]. I don't have details of what was done in [place]. No one called me. I will talk to Dr. Brewster and review records. Cont pain control Tramadol stop Hydrocodon. Pt consult. NO SURGERY WAS PERFORMED. STABLE AND DOING PT. (2) CKD (chronic kidney disease) stage 2, GFR 60-89 ml/min Current Visit: No Status: Acute
[2023-10-28] MEDS: ESTRADIOL 2 MG PO SCH (08:00)
[2023-10-28 08:17] VITALS: BP 145/67; TEMP 96.7
[2023-10-28] MEDS: LIDOCAINE 4% PATCH TOP SCH (08:19)
--- NOTE | 2023-10-28 17:53 | P.PN ---
Subjective Date of Service: 10/28/23 Chief Complaint: sp fall at home. Right hip impcacted fracture Subjective: Improving SHE NEVER HAD SURGERY PER DR. BREWSTER. MILDLY IMPACTED HIP FRACTURE. SHE IS DOING PT DAILY. CONT PT PAIN IS CONTROLLED. STABLE DOING PT NO NEW ISSUES. SHE IS STABLE FOR ASSISTED LIVING FAMILY IS WATCHING HER CAN BE FRAIL BUT VERY DEMANDING. Physical Examination - Vital Signs Temperature: 96.7 F Blood Pressure: 145/67 Pulse: 89 Respirations: 16 Pulse Ox (%): 95 - Studies Medications List Reviewed: Yes Assessment And Plan - Current Problems (Diagnosis) (1) Closed right hip fracture Status: Acute Plan: She has been to [place]. I don't have details of what was done in [place]. No one called me. I will talk to Dr. Brewster and review records. Cont pain control Tramadol stop Hydrocodon. Pt consult. NO SURGERY WAS PERFORMED. STABLE AND DOING PT. (2) CKD (chronic kidney disease) stage 2, GFR 60-89 ml/min Status: Acute
== END 2023-10-28 10:20 | disposition home health service (06) | DRG 560 ==
LOC: 5TH 20:50
PROVIDERS: ADMIT Psychiatry & Neurology Neurology with Special Qualifications in Child Neurology; ATTEND Psychiatry & Neurology Neurology with Special Qualifications in Child Neurology
DX: S72.011D Unspecified intracapsular fracture of right femur, subsequent encounter for closed fracture with routine healing (principal); E44.0 Moderate protein-calorie malnutrition; Z68.26 Body mass index [BMI] 26.0-26.9, adult; E78.5 Hyperlipidemia, unspecified; F32.A Depression, unspecified; I12.9 Hypertensive chronic kidney disease with stage 1 through stage 4 chronic kidney disease, or unspecified chronic kidney disease; N18.2 Chronic kidney disease, stage 2 (mild); M85.80 Other specified disorders of bone density and structure, unspecified site; M62.838 Other muscle spasm; G47.00 Insomnia, unspecified
CPT/HCPCS: 36415; 72192; 80048; 81001; 82040; 83735; 84134; 85025; 87086; 87088; 97110; 97116; 97163; 97165; 97530; 97542; J1650; J2001